=== PATIENT | male | born 1975 | race Caucasian/White ===

== ENCOUNTER → 2016-03-22 | Outpatient (CLI) | payer BC ==
--- NOTE | 2016-03-22 17:07 | XR ---
EXAMINATION TYPE: XR chest 2V DATE OF EXAM: 03/22/2016 4:12 PM COMPARISON: NONE INDICATION: Bladder tumor TECHNIQUE: Frontal and lateral views of the chest are obtained. FINDINGS: The heart size is normal. The pulmonary vasculature is normal. The lungs are clear. IMPRESSION: 1. No acute pulmonary process.
--- NOTE | 2016-03-22 17:08 | XR ---
EXAMINATION TYPE: XR KUB DATE OF EXAM: 03/22/2016 4:13 PM COMPARISON: NONE INDICATION: TECHNIQUE: Single view abdomen FINDINGS: There is a nonspecific bowel gas pattern within small bowel loops as well as colon. Psoas margins are normal. No organomegaly is present. No mass effect is evident. IMPRESSION: 1. Unremarkable Abdomen
== END | disposition home or self-care (01) ==
LOC: RADXRMAIN 15:53
PROVIDERS: ATTEND Family Medicine
DX: K21.9 Gastro-esophageal reflux disease without esophagitis (principal); R07.9 Chest pain, unspecified
CPT/HCPCS: 71020; 74000

== ENCOUNTER → 2016-04-05 | Outpatient (CLI) | payer BC ==
--- NOTE | 2016-04-05 17:09 | NM ---
EXAMINATION TYPE: NM bone scan whole body DATE OF EXAM: 04/05/2016 2:44 PM COMPARISON: NONE HISTORY: Low back pain Delayed whole-body scanning was performed following the injection of 25.0 mCi Tc 99m MDP. Images wer e acquired 3 hours post injection. SPECT imaging is performed through the lumbar spine FINDINGS: There is mild uptake within scattered joint spaces shoulders elbows wrists joint space is within the knees and ankles. Right first metatarsophalangeal joint space is increased uptake. Suspicious uptake within the lumbar spine is not identified. No suspicious uptake is evident on SPECT imaging. IMPRESSION: 1. Degenerative joint changes. No acute changes the lumbar spine are evident.
--- NOTE | 2016-04-05 17:39 | NM ---
EXAMINATION TYPE: NM bone SPECT DATE OF EXAM: 04/05/2016 2:41 PM SPECT imaging is performed in conjunction with the whole body bone scan. Please see whole-body bone s can report of same date.
== END | disposition home or self-care (01) ==
LOC: RADNMMAIN 10:10
PROVIDERS: ATTEND Orthopaedic Surgery Orthopaedic Surgery of the Spine
DX: M47.816 Spondylosis without myelopathy or radiculopathy, lumbar region (principal)
CPT/HCPCS: 78306; 78320; A9503

== ENCOUNTER 2016-07-08 12:22 | Emergency (ER) | payer BC ==
[2016-07-08] MEDS ORDERED: ALPRAZolam 0.5 MG TAB PO STA (15:50)
--- NOTE | 2016-07-08 16:06 | ED ---
General Adult HPI - General Chief complaint: Upper Respiratory Infection Stated complaint: Hand/Facial Numbness Time Seen by Provider: 07/08/16 15:33 Source: patient, RN notes reviewed Mode of arrival: ambulatory Limitations: no limitations - History of Present Illness Initial comments: Patient a 40-year-old male who presents emergency room today with multiple complaints. He does admit to cough congestion over the last 4 days. Denies any sputum production. Admits that he's had a history of anxiety is had symptoms of numbness tingling to the left arm and left side of his face. He states he's had this in the past. He states has been well controlled with his medications that he's been taking at home. He states that he had increased symptoms even after taking his medications. Does admit that he's had some headache to the left side as well. Does admit to increased rhinorrhea and a sore throat. Patient states that some of the symptoms are consistent with his anxiety but the headache is different than what is experienced in the past. Patient denies any other complaints or symptoms. Patient denies any recent fever , chills, shortness of breath, chest pain, back pain, abdominal pain, nausea or vomiting, numbness or tingling, dysuria or hematuria, constipation or diarrhea, headaches or visual changes, or any other complaints. - Related Data Home Medications Medication Instructions Recorded Confirmed ALPRAZolam [Xanax] 0.5 mg PO DAILY PRN 07/08/16 07/08/16 Clobetasol Propionate [Temovate] 1 applic TOPICAL BID 07/08/16 07/08/16 Ibuprofen [Motrin] 800 mg PO Q8H PRN 07/08/16 07/08/16 Sertraline [Zoloft] 50 mg PO BID 07/08/16 07/08/16 Tolterodine Tartrate [Detrol LA] 4 mg PO DAILY 07/08/16 07/08/16 Previous Rx's Medication Instructions Recorded Fluticasone Propionate [Flonase 1 - 2 spray EA NOSTRIL DAILY 5 Days 07/08/16 Allergy Relief] Allergies Allergy/AdvReac Type Severity Reaction Status Date / Time meperidine [From Demerol] Allergy Anaphylaxis Verified 07/08/16 16:02 Review of Systems ROS Statement: Those systems with pertinent positive or pertinent negative responses have been documented in the HPI. ROS Other: All systems not noted in ROS Statement are negative. Past Medical History Past Medical History: Cancer History of Any Multi-Drug Resistant Organisms: None Reported Additional Past Surgical History / Comment(s): bladder surgery Past Psychological History: Anxiety Smoking Status: Current every day smoker Past Alcohol Use History: None Reported Past Drug Use History: Marijuana General Exam - General Exam Comments Initial Comments: General: The patient is awake and alert, in no distress, and does not appear acutely ill. Eye: Pupils are equal, round and reactive to light, extra-ocular movements are intact. No nystagmus. There is normal conjunctiva bilaterally. No signs of icterus. Ears, nose, mouth and throat: There are moist mucous membranes and no oral lesions. Neck: The neck is supple, there is no tenderness or JVD. Cardiovascular: There is a regular rate and rhythm. No murmur, rub or gallop is appreciated. Respiratory: Lungs are clear to auscultation, respirations are non-labored, breath sounds are equal. No wheezes, stridor, rales, or rhonchi. Gastrointestinal: Soft, non-distended, non-tender abdomen without masses or organomegaly noted. There is no rebound or guarding present. No CVA tenderness. Bowel sounds are unremarkable. Musculoskeletal: Normal ROM, no tenderness. Strength 5/5. Sensation intact. Pulses equal bilaterally 2+. Neurological: A&O x 3. CN II-XII intact, There are no obvious motor or sensory deficits. Coordination appears grossly intact. Speech is normal. Skin: Skin is warm and dry and no rashes or lesions are noted. Psychiatric: Cooperative, appropriate mood & affect, normal judgment. Limitations: no limitations Course Vital Signs 07/08/16 12:28 Temperature 98.1 F Pulse Rate 95 Respiratory 18 Rate Blood Pressure 139/89 O2 Sat by Pulse 96 Oximetry Medical Decision Making - Medical Decision Making Patient reexamined at this time shows no signs of distress. Patient was given half a Xanax as is worried he takes at home. She admits that numbness tingling has gone away. He does admit that he has headache. CT of the brain reviewed does show some mucosal thickening of the ethmoid. No other acute abnormalities. Patient's chest x-ray negative. Patient will be given Flonase for his symptoms of rhinorrhea and sinus tenderness. He is advised follow-up with his family doctor over the next 2 days. He is advised return for any other concerns. Disposition Clinical Impression: Acute sinusitis Disposition: HOME SELF-CARE Condition: Good Instructions: Sinusitis (ED) Additional Instructions: Please use medication as discussed. Please follow-up with family doctor in the next 2 days of symptoms have not improved. Please return to emergency room if the symptoms increase or worsen or for any other concerns. Prescriptions: Fluticasone Propionate [Flonase Allergy Relief] 1 - 2 spray EA NOSTRIL DAILY 5 Days Time of Disposition: 17:15
--- NOTE | 2016-07-08 16:48 | XR ---
EXAMINATION TYPE: XR chest 2V DATE OF EXAM: 07/08/2016 4:43 PM COMPARISON: 03/22/2016 INDICATION: Cough x4 days TECHNIQUE: Single frontal view of the chest is obtained. FINDINGS: The heart size is normal. The pulmonary vasculature is normal. The lungs are clear. IMPRESSION: 1. No acute pulmonary process.
--- NOTE | 2016-07-08 16:50 | CT ---
EXAMINATION TYPE: CT brain cspine wo con DATE OF EXAM: 07/08/2016 4:44 PM COMPARISON: NONE HISTORY: History of bladder cancer. Headache and left sided numbness. CT DLP: 1782.00 mGycm, Automated exposure control for dose reduction was used. CONTRAST: None CT of the brain is performed utilizing 3 mm thick sections through the posterior fossa and 3 mm thick sections through the remaining calvarium. Study is performed within 24 hours of arrival to the hospital. No abnormal hyperdensity is present to suggest an acute intracranial hemorrhage. No mass lesion is evident. No acute infarcts are evident. Ventricles and sulci are appropriate for the patient age. There is mucosal thickening within ethmoid air cells. There may been prior uncinectomy. Remaining Paranasal sinuses and mastoid air cells within the [id number] are clear. IMPRESSIONS: 1. Normal CT brain. 2. Mucosal thickening within ethmoid air cells. CT cervical spine. COMPARISON: None CT of the cervical spine is performed in the axial plane at 2 mm thick sections. Reconstructed image s in the coronal, and sagittal plane are reviewed on the computer. No acute fractures are evident. Vertebral body alignment is normal. Disc heights are preserved. Vertebral body heights are preserved. No spinal canal stenosis is evident. No neural foraminal stenosis is evident. No suspicious osseous abnormality. IMPRESSIONS: 1. Normal CT cervical spine.
[2016-07-08 17:37] VITALS: BP 121/70; PULSE 87; RESP 20; TEMP 98
== END 2016-07-08 17:37 | disposition home or self-care (01) ==
LOC: EC 12:22
DX: J01.90 Acute sinusitis, unspecified (principal); R05 Cough; F41.9 Anxiety disorder, unspecified; F17.200 Nicotine dependence, unspecified, uncomplicated; Z85.9 Personal history of malignant neoplasm, unspecified; Z88.5 Allergy status to narcotic agent; Z79.899 Other long term (current) drug therapy
CPT/HCPCS: 70450; 71020; 72125; 93005; 99284

== ENCOUNTER → 2016-07-28 | Outpatient (CLI) | payer BC ==
[2016-07-28 13:23] LABS: Creatine Kinase 145 U/L (55-170)
[2016-07-28 13:28] LABS: Rheumatoid Factor, Qnt <9 IU/mL (<12)
[2016-07-28 19:26] LABS: Treponemal Ab Non-Reactive (Non-Reactive)
[2016-07-28 20:07] LABS: ANA w/Reflex to Titer NEGATIVE (NEGATIVE)
[2016-07-29 06:54] LABS: Lyme Antibodies Total(IgG/IgM) 0.05 (<0.90)
== END | disposition home or self-care (01) ==
LOC: LABWHC1 12:21
PROVIDERS: ATTEND Psychiatry & Neurology Neurology
DX: M60.9 Myositis, unspecified (principal); M79.1 Myalgia; M25.50 Pain in unspecified joint
CPT/HCPCS: 36415; 82550; 85652; 86038; 86225; 86235; 86431; 86618; 86780

== ENCOUNTER 2017-01-26 18:26 | Emergency (ER) | payer BC ==
[2017-01-26 19:18] LABS: Basophils % (A) 1 %; CH 30.6; CHCM 34.6; Eosinophils # (A) 0.4 k/uL (0-0.7); Eosinophils % (A) 5 %; HCT 45.2 % (39.0-53.0); HGB 15.1 gm/dL (13.0-17.5); Luc # (Auto) 0.15; Luc % (Auto) 2; Lymphocytes # (A) 1.7 k/uL (1.0-4.8); Lymphocytes % (A) 25 %; MCH 29.6 pg (25.0-35.0); MCHC 33.4 g/dL (31.0-37.0); MCV 88.7 fL (80.0-100.0); Mean Platelet Volume 6.8; Monocytes # (A) 0.4 k/uL (0-1.0); Monocytes % (A) 6 %; Neutrophils # (A) 4.3 k/uL (1.3-7.7); Neutrophils % (A) 61 %; RBC 5.09 m/uL (4.30-5.90); RDW 12.9 % (11.5-15.5); WBC (Perox) 6.84
--- NOTE | 2017-01-26 19:20 | ED ---
General Adult HPI - General Chief complaint: Chest Pain Stated complaint: chest tightness Time Seen by Provider: 01/26/17 18:44 Source: patient, RN notes reviewed, old records reviewed Mode of arrival: ambulatory Limitations: no limitations - History of Present Illness Initial comments: This is a 41-year-old male the ER for evaluation. Patient does reevaluation of chest pain muscle pain body aches. Patient was at the ER for evaluation by urgent care. He is chest pain-free but he does admit not available the last few days. Pain is left sided chest pain. Patient denies fevers no abdominal pain. No nausea vomiting. No travel history - Related Data Home Medications Medication Instructions Recorded Confirmed Diazepam [Valium] 5 mg PO TID PRN 01/26/17 01/26/17 HYDROcodone/APAP 5-325MG [[place] 1 tab PO BID PRN 01/26/17 01/26/17 5-325] Ibuprofen [Motrin] 800 mg PO Q8H PRN 01/26/17 01/26/17 Sertraline [Zoloft] 100 mg PO BID 01/26/17 01/26/17 Previous Rx's Medication Instructions Recorded HYDROcodone/APAP 5-325MG [[place] 1 tab PO Q6HR PRN #30 tab 01/26/17 5-325] Naproxen [Naprosyn] 500 mg PO Q12HR #30 tab 01/26/17 Allergies Allergy/AdvReac Type Severity Reaction Status Date / Time meperidine [From Demerol] Allergy Anaphylaxis Verified 01/26/17 19:18 Review of Systems ROS Statement: Those systems with pertinent positive or pertinent negative responses have been documented in the HPI. ROS Other: All systems not noted in ROS Statement are negative. Past Medical History Past Medical History: Cancer History of Any Multi-Drug Resistant Organisms: None Reported Additional Past Surgical History / Comment(s): bladder surgery Past Psychological History: Anxiety Smoking Status: Current every day smoker Past Alcohol Use History: None Reported Past Drug Use History: Marijuana General Exam Limitations: no limitations General appearance: alert, in no apparent distress Head exam: Present: atraumatic, normocephalic, normal inspection Eye exam: Present: normal appearance, PERRL, EOMI. Absent: scleral icterus, conjunctival injection, periorbital swelling ENT exam: Present: normal exam, mucous membranes moist Neck exam: Present: normal inspection. Absent: tenderness, meningismus, lymphadenopathy Respiratory exam: Present: normal lung sounds bilaterally. Absent: respiratory distress, wheezes, rales, rhonchi, stridor Cardiovascular Exam: Present: regular rate, normal rhythm, normal heart sounds. Absent: systolic murmur, diastolic murmur, rubs, gallop, clicks GI/Abdominal exam: Present: soft, normal bowel sounds. Absent: distended, tenderness, guarding, rebound, rigid Extremities exam: Present: normal inspection, full ROM, normal capillary refill. Absent: tenderness, pedal edema, joint swelling, calf tenderness Back exam: Present: normal inspection Neurological exam: Present: alert, oriented X3, CN II-XII intact Psychiatric exam: Present: normal affect, normal mood Skin exam: Present: warm, dry, intact, normal color. Absent: rash Course Vital Signs 01/26/17 01/26/17 01/26/17 18:40 20:16 21:50 Temperature 97.8 F 98.2 F Pulse Rate 77 71 70 Respiratory 20 20 18 Rate Blood Pressure 116/80 118/56 110/56 O2 Sat by Pulse 99 99 99 Oximetry EKG Findings - EKG Comments: EKG Findings:: EKG shows normal sinus over 75, AK 144, QRS 74, QTc 410 Medical Decision Making - Medical Decision Making 41 male to the ER with chest pain. Chest pain and abnormal muscle aches and pains. Patient symptoms are improved, states he would like to be discharged home - Lab Data Result diagrams: 01/26/17 19:00 01/26/17 19:00 Lab Results 01/26/17 01/26/17 01/26/17 Range/Units 19:00 19:00 19:00 WBC 7.0 (3.8-10.6) k/uL RBC 5.09 (4.30-5.90) m/uL Hgb 15.1 (13.0-17.5) gm/dL Hct 45.2 (39.0-53.0) % MCV 88.7 (80.0-100.0) fL MCH 29.6 (25.0-35.0) pg MCHC 33.4 (31.0-37.0) g/dL RDW 12.9 (11.5-15.5) % Plt Count 224 (150-450) k/uL Neutrophils % 61 % Lymphocytes % 25 % Monocytes % 6 % Eosinophils % 5 % Basophils % 1 % Neutrophils # 4.3 (1.3-7.7) k/uL Lymphocytes # 1.7 (1.0-4.8) k/uL Monocytes # 0.4 (0-1.0) k/uL Eosinophils # 0.4 (0-0.7) k/uL Basophils # 0.0 (0-0.2) k/uL PT (9.0-12.0) sec INR (<1.2) APTT (22.0-30.0) sec D-Dimer (<0.60) mg/L FEU Sodium 141 (137-145) mmol/L Potassium 4.5 (3.5-5.1) mmol/L Chloride 109 H (98-107) mmol/L Carbon Dioxide 23 (22-30) mmol/L Anion Gap 9 mmol/L BUN 18 (9-20) mg/dL Creatinine 0.88 (0.66-1.25) mg/dL Est GFR (MDRD) Af Amer >60 (>60 ml/min/1.73 sqM) Est GFR (MDRD) Non-Af >60 (>60 ml/min/1.73 sqM) Glucose 94 (74-99) mg/dL Calcium 9.5 (8.4-10.2) mg/dL Magnesium 2.0 (1.6-2.3) mg/dL Total Bilirubin 0.4 (0.2-1.3) mg/dL AST 35 (17-59) U/L ALT 68 (21-72) U/L Alkaline Phosphatase 93 (38-126) U/L Total Creatine Kinase 185 H (55-170) U/L CK-MB (CK-2) 1.4 (0.0-2.4) ng/mL CK-MB (CK-2) Rel Index 0.8 Troponin I <0.012 (0.000-0.034) ng/mL Total Protein 7.9 (6.3-8.2) g/dL Albumin 4.5 (3.5-5.0) g/dL Lipase 76 (23-300) U/L Urine Color Urine Appearance (Clear) Urine pH (5.0-8.0) Ur Specific [place] (1.001-1.035) Urine Protein (Negative) Urine Glucose (UA) (Negative) Urine Ketones (Negative) Urine Blood (Negative) Urine Nitrite (Negative) Urine Bilirubin (Negative) Urine Urobilinogen (<2.0) mg/dL Ur Leukocyte Esterase (Negative) 01/26/17 01/26/17 Range/Units 19:00 21:40 WBC (3.8-10.6) k/uL RBC (4.30-5.90) m/uL Hgb (13.0-17.5) gm/dL Hct (39.0-53.0) % MCV (80.0-100.0) fL MCH (25.0-35.0) pg MCHC (31.0-37.0) g/dL RDW (11.5-15.5) % Plt Count (150-450) k/uL Neutrophils % % Lymphocytes % % Monocytes % % Eosinophils % % Basophils % % Neutrophils # (1.3-7.7) k/uL Lymphocytes # (1.0-4.8) k/uL Monocytes # (0-1.0) k/uL Eosinophils # (0-0.7) k/uL Basophils # (0-0.2) k/uL PT 12.0 (9.0-12.0) sec INR 1.2 H (<1.2) APTT 26.3 (22.0-30.0) sec D-Dimer 0.65 H (<0.60) mg/L FEU Sodium (137-145) mmol/L Potassium (3.5-5.1) mmol/L Chloride (98-107) mmol/L Carbon Dioxide (22-30) mmol/L Anion Gap mmol/L BUN (9-20) mg/dL Creatinine (0.66-1.25) mg/dL Est GFR (MDRD) Af Amer (>60 ml/min/1.73 sqM) Est GFR (MDRD) Non-Af (>60 ml/min/1.73 sqM) Glucose (74-99) mg/dL Calcium (8.4-10.2) mg/dL Magnesium (1.6-2.3) mg/dL Total Bilirubin (0.2-1.3) mg/dL AST (17-59) U/L ALT (21-72) U/L Alkaline Phosphatase (38-126) U/L Total Creatine Kinase (55-170) U/L CK-MB (CK-2) (0.0-2.4) ng/mL CK-MB (CK-2) Rel Index Troponin I (0.000-0.034) ng/mL Total Protein (6.3-8.2) g/dL Albumin (3.5-5.0) g/dL Lipase (23-300) U/L Urine Color Light Yellow Urine Appearance Clear (Clear) Urine pH 6.5 (5.0-8.0) Ur Specific [place] 1.028 (1.001-1.035) Urine Protein Negative (Negative) Urine Glucose (UA) Negative (Negative) Urine Ketones Negative (Negative) Urine Blood Negative (Negative) Urine Nitrite Negative (Negative) Urine Bilirubin Negative (Negative) Urine Urobilinogen <2.0 (<2.0) mg/dL Ur Leukocyte Esterase Negative (Negative) - Radiology Data Radiology results: report reviewed (Chest x-rays negative for acute disease), image reviewed Disposition Clinical Impression: Chest pain Disposition: HOME SELF-CARE Condition: Good Instructions: Chest Pain (ED), Viral Syndrome (ED) Prescriptions: HYDROcodone/APAP 5-325MG [[place] 5-325] 1 tab PO Q6HR PRN #30 tab PRN Reason: Pain Naproxen [Naprosyn] 500 mg PO Q12HR #30 tab Referrals: Luisito Mast MD [Primary Care Provider] - 1-2 days
[2017-01-26 19:26] LABS: ALT 68 U/L (21-72); AST 35 U/L (17-59); Alkaline Phosphatase 93 U/L (38-126); Anion Gap 9 mmol/L; Blood Urea Nitrogen 18 mg/dL (9-20); Calcium 9.5 mg/dL (8.4-10.2); Carbon Dioxide 23 mmol/L (22-30); Chloride 109 mmol/L (98-107); Glucose 94 mg/dL (74-99); Non-African American GFR(MDRD) >60 (>60 ml/min/1.73 sqM); Potassium 4.5 mmol/L (3.5-5.1); Sodium 141 mmol/L (137-145); Total Bilirubin 0.4 mg/dL (0.2-1.3); Total Protein 7.9 g/dL (6.3-8.2)
[2017-01-26 19:30] LABS: INR 1.2 (<1.2); Partial Thromboplastin Time 26.3 sec (22.0-30.0)
--- NOTE | 2017-01-26 19:31 | XR ---
EXAMINATION TYPE: XR chest 2V DATE OF EXAM: 01/26/2017 COMPARISON: 07/08/2016 HISTORY: Chest pain TECHNIQUE: Frontal and lateral views of the chest are obtained. FINDINGS: Heart and mediastinum are normal. Lungs are clear. Diaphragm is normal. Bony thorax is int act. There are chest leads. IMPRESSION: Normal chest. No change.
[2017-01-26] MEDS ORDERED: RX INFO: IV CONTRAST WAS GIVEN 1 EACH MISC MISCELLANE PRN (19:53)
[2017-01-26] MEDS ORDERED: ONDANSETRON 4 MG/2 ML VIAL IVP STA (19:53)
[2017-01-26] MEDS ORDERED: MORPHINE SULFATE 10 MG/ML SYRINGE IVP STA (19:53)
[2017-01-26 19:56] LABS: Creatine Kinase 185 U/L (55-170)
[2017-01-26 20:08] LABS: Creatine Kinase MB 1.4 ng/mL (0.0-2.4); Troponin I <0.012 ng/mL (0.000-0.034)
--- NOTE | 2017-01-26 20:48 | CT ---
EXAMINATION TYPE: CT angio chest DATE OF EXAM: 01/26/2017 8:34 PM COMPARISON: NONE HISTORY: Chest tightness and elevated d-dimer. CT DLP: 316.80 mGycm Automated exposure control for dose reduction was used. CONTRAST: CTA scan of the thorax is performed with IV Contrast, patient injected with 85 mL of Omnipaque 350, p ulmonary embolism protocol. There are 3-D post processed images.. FINDINGS: The lungs are clear of consolidation. There is no evidence of a pulmonary mass. There are tiny subple ural interstitial infiltrates in both lungs. There is no pleural effusion. Heart size is normal. Medi astinum is normal. There is no evidence of aortic aneurysm or dissection. There is normal appearance of the pulmonary arteries. I see no filling defects. There are small bronc hial lymph nodes that measure up to 1 cm. The bony thorax is intact. IMPRESSION: NEGATIVE CT ANGIOGRAM OF THE CHEST. NO EVIDENCE OF PULMONARY EMBOLISM. MINIMAL SUBPLEURAL DENSITY CON SISTENT WITH SCARRING OR SUBSEGMENTAL ATELECTASIS.
[2017-01-26 21:52] VITALS: BP 110/56; PULSE 70; RESP 18; TEMP 98.2
[2017-01-26 22:02] LABS: Appearance,Urine Clear (Clear); Bilirubin,Urine Negative (Negative); Glucose,Urine (UA) Negative (Negative); Ketones,Urine Negative (Negative); Leukocyte Esterase,Urine Negative (Negative); Nitrite,Urine Negative (Negative); PH, Urine 6.5 (5.0-8.0); Protein,Urine Negative (Negative); Specific Gravity,Urine 1.028 (1.001-1.035); UA Billing (MACRO vs. MICRO) CHEM; Urobilinogen,Urine <2.0 mg/dL (<2.0)
== END 2017-01-26 21:50 | disposition home or self-care (01) ==
LOC: EC 18:26
DX: R07.9 Chest pain, unspecified (principal); F41.9 Anxiety disorder, unspecified; F17.200 Nicotine dependence, unspecified, uncomplicated; Z85.9 Personal history of malignant neoplasm, unspecified; Z53.20 Procedure and treatment not carried out because of patient's decision for unspecified reasons; Z88.5 Allergy status to narcotic agent; Z79.899 Other long term (current) drug therapy
CPT/HCPCS: 36415; 93005; 85379; 80053; 82550; 82553; 83690; 83735; 84484; 85025; 85610; 85730; 81003; 71020; 71275; 99285; Q9967

== ENCOUNTER → 2017-07-17 | Outpatient (CLI) | payer BC ==
--- NOTE | 2017-07-17 11:03 | MR ---
EXAMINATION TYPE: MR brain wo/w con DATE OF EXAM: 07/17/2017 COMPARISON: NONE HISTORY: 41-year-old male Headache TECHNIQUE: Multiplanar, multisequence images of the brain and brainstem were acquired before and aft er administration of 7.5 mL IV Gadavist. Diffusion weighted imaging is performed. FINDINGS: No evidence for acute infarction, hemorrhage, mass, mass effect, midline shift, herniation, effacemen t of basal cisterns, or extra-axial fluid collection. The ventricles and sulci are age-appropriate. Major intracranial flow voids are intact. T2/FLAIR weighted sequences show no white matter signal abnormality. Midline structures demonstrate normal morphology. The craniocervical junction is normal. Post contrast images demonstrate no evidence of pathologic enhancement. Dural venous sinuses are pat ent. Opacification of the left-sided mastoid air cells. Mild mucosal thickening throughout the ethmoid air cells. Globes are intact. IMPRESSION: 1. No acute intracranial abnormality seen. No white matter signal changes or abnormal enhancement. 2. Trapped fluid in the left mastoid air cells. Correlate for any mastoid pain to exclude mastoiditis . 3. Mild chronic ethmoid sinus disease.
--- NOTE | 2017-07-17 12:49 | MR ---
EXAMINATION TYPE: MR cspine/lspine wo/w con DATE OF EXAM: 07/17/2017 COMPARISON: Lumbar spine 03/11/2016 HISTORY: 41-year-old male neck pain, Cervicalgia, LBP Technique: Multiplanar, multisequence images of the cervical followed by the lumbar spine were obtain ed before and after administration of 7.5 mL intravenous Gadavist gadolinium contrast. FINDINGS: CERVICAL SPINE: No craniocervical junction of the body, predental space widening, or prevertebral soft tissue swellin g. Variable mild disc desiccation mid to lower cervical spine. Bulging discs at c5-c6 and larger at c6-c 7. Mild facet degenerative change lower cervical spine. There is preserved alignment. No suspicious bone marrow replacement. At c2-c3, mild facet degenerative change without canal or foraminal stenosis. At c3-c4, mild facet degenerative change without canal or foraminal stenosis. At c4-c5, bilateral facet degenerative change with mild narrowing of the right neuroforamen. No spina l canal stenosis. At c5-c6, mild facet and uncovertebral joint degenerative change. There is mild narrowing of the righ t-sided neuroforamen. Minimal posterior disc bulge is present without significant spinal canal stenos is. At c6-c7, broad-based posterior disc bulge with superimposed central, right paracentral protrusion. T his impresses on the ventral thecal sac mildly narrowing the spinal canal to 1 cm. However, there is no abutment or flattening of the cord. Facet and uncovertebral joint degenerative change with mild le ft neuroforaminal stenosis. At c7-t1, mild facet degenerative change without significant canal or foraminal stenosis. No abnormal enhancement within the spinal canal. No prevertebral or paravertebral soft tissue abnormality seen. Normal course, caliber, and signal intensity of the cervical cord. LUMBAR SPINE: Vertebral body heights are preserved and alignment is maintained. Redemonstrated Modic type II fatty endplate change anteriorly at L2-L3. Mild heterogeneity of marrow signal without suspicious bone marrow replacement. There is a component of mild congenital spinal canal stenosis with AP canal dimension of 1.1 cm in th e mid lumbar spine. Conus medullaris is normal. No prevertebral or paravertebral soft tissue abnormality seen. Prominent anterior endplate spondylosis L1-L4 levels along with posterior bulging discs. Facet degene rative change mid to lower lumbar spine. At T12-L1, no canal or foraminal stenosis. At L1-L2, bulging disc minimally impressing onto the ventral thecal sac but without significant spina l canal stenosis. At L2-L3, bulging disc minimally impressing on the ventral thecal sac. No significant canal or forami nal stenosis. At L3-L4, combination of congenital canal narrowing and bulging disc mildly narrows the spinal canal. Facet degenerative changes also present with mild right greater than left neural foraminal stenosis, similar to prior exam. At L4-L5, mild facet degenerative change and mild bulging disc. Changes result in mild bilateral neur oforaminal stenosis similar to slightly progressed from prior. No significant spinal canal stenosis. At L5-S1, mild facet degenerative change. No significant spinal canal or neuroforaminal stenosis. No abnormal enhancement within the spinal canal. COMBINED IMPRESSION: CERVICAL SPINE: 1. Mild multilevel degenerative disc disease. There is a small disc herniation at C6-C7 impressing th e ventral thecal sac and mildly narrowing the spinal canal. However, there is no cord abutment or can al compromise. 2. Scattered mild facet and uncovertebral joint arthropathy. This causes mild neural foraminal narrow ing particularly on the right at C4-C5 and C5-C6 and on the left at C6-C7. LUMBAR SPINE: 1. [id number] degenerative disc disease particularly from L1 through L4 levels with mild disc d esiccation, mild disc interspace narrowing, and diffuse disc bulging. 2. There is a component of mild congenital spinal canal narrowing in the mid lumbar spine. Along with the bulging disc at L3-L4, there is overall mild spinal canal stenosis. No kimberli canal compromise at any level. 3. Similar mild right greater than left neuroforaminal stenosis at L3-L4. 4. Along with mild facet arthropathy in the lower lumbar spine, changes result in mild bilateral neur al foraminal narrowing at L4-L5, stable to minimally progressed from 2016.
== END ==
LOC: RADMRIMAIN 08:39
PROVIDERS: ATTEND Psychiatry & Neurology Pain Medicine
DX: M48.02 Spinal stenosis, cervical region (principal); M48.061 Spinal stenosis, lumbar region without neurogenic claudication; M99.71 Connective tissue and disc stenosis of intervertebral foramina of cervical region; M99.73 Connective tissue and disc stenosis of intervertebral foramina of lumbar region; M50.222 Other cervical disc displacement at C5-C6 level; M51.26 Other intervertebral disc displacement, lumbar region; M50.30 Other cervical disc degeneration, unspecified cervical region; M51.36 Other intervertebral disc degeneration, lumbar region; M46.92 Unspecified inflammatory spondylopathy, cervical region; M46.96 Unspecified inflammatory spondylopathy, lumbar region; Q76.49 Other congenital malformations of spine, not associated with scoliosis; R51 Headache; Z88.5 Allergy status to narcotic agent
CPT/HCPCS: 70553; 72156; 72158; A9581

== ENCOUNTER 2017-11-08 14:55 | Emergency (ER) | payer BC ==
[2017-11-08] MEDS ORDERED: KETOROLAC 30 MG/ML 1 ML VIAL IVP STA (15:12)
[2017-11-08] MEDS ORDERED: SODIUM CHLORIDE 0.9% 1,000 ML IV STA (15:12)
[2017-11-08] MEDS ORDERED: SODIUM CHLORIDE 0.9% 500 ML IV STA (15:12)
[2017-11-08] MEDS ORDERED: MORPHINE SULFATE 4 MG/ML SYRINGE IV STA (15:12)
--- NOTE | 2017-11-08 15:20 | ED ---
General Adult HPI - General Chief complaint: Urogenital Stated complaint: painful urination Time Seen by Provider: 11/08/17 15:00 Source: patient, RN notes reviewed, old records reviewed Mode of arrival: ambulatory Limitations: no limitations - History of Present Illness Initial comments: This is a 42-year-old male the ER for evaluation. Patient was essay for evaluation regards to severe scrotal pain, perineal pain. Patient states he can not walk, can barely walk secondary to severe pain that he is having below his scrotum. Patient has history of bladder cancer with tumor removal. Patient has difficulty with urination as well. No fevers. No abdominal pain. Pain appears to rest between his scrotum and his rectum - Related Data Home Medications Medication Instructions Recorded Confirmed Diazepam [Valium] 5 mg PO DAILY PRN 01/26/17 11/08/17 HYDROcodone/APAP 5-325MG [[place] 1 tab PO DAILY PRN 01/26/17 11/08/17 5-325] Ibuprofen [Motrin] 800 mg PO QAM 01/26/17 11/08/17 Sertraline [Zoloft] 100 mg PO BID 01/26/17 11/08/17 Allergies Allergy/AdvReac Type Severity Reaction Status Date / Time meperidine [From Demerol] Allergy Anaphylaxis Verified 11/08/17 15:58 Review of Systems ROS Statement: Those systems with pertinent positive or pertinent negative responses have been documented in the HPI. ROS Other: All systems not noted in ROS Statement are negative. Past Medical History Past Medical History: Cancer Additional Past Medical History / Comment(s): bladder cancer History of Any Multi-Drug Resistant Organisms: None Reported Additional Past Surgical History / Comment(s): bladder surgery Past Psychological History: Anxiety Smoking Status: Current every day smoker Past Alcohol Use History: None Reported Past Drug Use History: Marijuana General Exam Limitations: no limitations General appearance: alert, in no apparent distress Head exam: Present: atraumatic, normocephalic, normal inspection Eye exam: Present: normal appearance, PERRL, EOMI. Absent: scleral icterus, conjunctival injection, periorbital swelling ENT exam: Present: normal exam, mucous membranes moist Neck exam: Present: normal inspection. Absent: tenderness, meningismus, lymphadenopathy Respiratory exam: Present: normal lung sounds bilaterally. Absent: respiratory distress, wheezes, rales, rhonchi, stridor Cardiovascular Exam: Present: regular rate, normal rhythm, normal heart sounds. Absent: systolic murmur, diastolic murmur, rubs, gallop, clicks GI/Abdominal exam: Present: soft, normal bowel sounds. Absent: distended, tenderness, guarding, rebound, rigid exam: Present: other (Severe perineal pain and tenderness) Extremities exam: Present: normal inspection, full ROM, normal capillary refill. Absent: tenderness, pedal edema, joint swelling, calf tenderness Back exam: Present: normal inspection Neurological exam: Present: alert, oriented X3, CN II-XII intact Psychiatric exam: Present: normal affect, normal mood Skin exam: Present: warm, dry, intact, normal color. Absent: rash Course Vital Signs 11/08/17 14:56 Temperature 98.1 F Pulse Rate 94 Respiratory 20 Rate Blood Pressure 138/95 O2 Sat by Pulse 99 Oximetry Medical Decision Making - Lab Data Result diagrams: 11/08/17 15:20 11/08/17 15:20 Lab Results 11/08/17 11/08/17 11/08/17 Range/Units 15:01 15:20 15:20 WBC 7.6 (3.8-10.6) k/uL RBC 5.02 (4.30-5.90) m/uL Hgb 15.5 (13.0-17.5) gm/dL Hct 43.8 (39.0-53.0) % MCV 87.4 (80.0-100.0) fL MCH 31.0 (25.0-35.0) pg MCHC 35.5 (31.0-37.0) g/dL RDW 12.9 (11.5-15.5) % Plt Count 238 (150-450) k/uL Neutrophils % 64 % Lymphocytes % 23 % Monocytes % 6 % Eosinophils % 5 % Basophils % 0 % Neutrophils # 4.8 (1.3-7.7) k/uL Lymphocytes # 1.7 (1.0-4.8) k/uL Monocytes # 0.4 (0-1.0) k/uL Eosinophils # 0.4 (0-0.7) k/uL Basophils # 0.0 (0-0.2) k/uL Sodium 141 (137-145) mmol/L Potassium 4.3 (3.5-5.1) mmol/L Chloride 107 (98-107) mmol/L Carbon Dioxide 25 (22-30) mmol/L Anion Gap 9 mmol/L BUN 20 (9-20) mg/dL Creatinine 0.90 (0.66-1.25) mg/dL Est GFR (CKD-EPI)AfAm >90 (>60 ml/min/1.73 sqM) Est GFR (CKD-EPI)NonAf >90 (>60 ml/min/1.73 sqM) Glucose 109 H (74-99) mg/dL Plasma Lactic Acid Jimy (0.7-2.0) mmol/L Calcium 9.3 (8.4-10.2) mg/dL Total Bilirubin 0.5 (0.2-1.3) mg/dL AST 30 (17-59) U/L ALT 53 (21-72) U/L Alkaline Phosphatase 80 (38-126) U/L Total Protein 7.3 (6.3-8.2) g/dL Albumin 4.5 (3.5-5.0) g/dL Amylase 62 (30-110) U/L Lipase 109 (23-300) U/L Urine Color Light Yellow Urine Appearance Cloudy (Clear) Urine pH 6.5 (5.0-8.0) Ur Specific [place] 1.015 (1.001-1.035) Urine Protein Negative (Negative) Urine Glucose (UA) Negative (Negative) Urine Ketones Negative (Negative) Urine Blood Small H (Negative) Urine Nitrite Negative (Negative) Urine Bilirubin Negative (Negative) Urine Urobilinogen <2.0 (<2.0) mg/dL Ur Leukocyte Esterase Moderate H (Negative) Urine RBC 26 H (0-5) /hpf Urine WBC 6 H (0-5) /hpf Urine Bacteria Rare H (None) /hpf Urine Yeast (Budding) Few H (None) /hpf 11/08/17 Range/Units 15:20 WBC (3.8-10.6) k/uL RBC (4.30-5.90) m/uL Hgb (13.0-17.5) gm/dL Hct (39.0-53.0) % MCV (80.0-100.0) fL MCH (25.0-35.0) pg MCHC (31.0-37.0) g/dL RDW (11.5-15.5) % Plt Count (150-450) k/uL Neutrophils % % Lymphocytes % % Monocytes % % Eosinophils % % Basophils % % Neutrophils # (1.3-7.7) k/uL Lymphocytes # (1.0-4.8) k/uL Monocytes # (0-1.0) k/uL Eosinophils # (0-0.7) k/uL Basophils # (0-0.2) k/uL Sodium (137-145) mmol/L Potassium (3.5-5.1) mmol/L Chloride (98-107) mmol/L Carbon Dioxide (22-30) mmol/L Anion Gap mmol/L BUN (9-20) mg/dL Creatinine (0.66-1.25) mg/dL Est GFR (CKD-EPI)AfAm (>60 ml/min/1.73 sqM) Est GFR (CKD-EPI)NonAf (>60 ml/min/1.73 sqM) Glucose (74-99) mg/dL Plasma Lactic Acid Jimy 1.2 (0.7-2.0) mmol/L Calcium (8.4-10.2) mg/dL Total Bilirubin (0.2-1.3) mg/dL AST (17-59) U/L ALT (21-72) U/L Alkaline Phosphatase (38-126) U/L Total Protein (6.3-8.2) g/dL Albumin (3.5-5.0) g/dL Amylase (30-110) U/L Lipase (23-300) U/L Urine Color Urine Appearance (Clear) Urine pH (5.0-8.0) Ur Specific [place] (1.001-1.035) Urine Protein (Negative) Urine Glucose (UA) (Negative) Urine Ketones (Negative) Urine Blood (Negative) Urine Nitrite (Negative) Urine Bilirubin (Negative) Urine Urobilinogen (<2.0) mg/dL Ur Leukocyte Esterase (Negative) Urine RBC (0-5) /hpf Urine WBC (0-5) /hpf Urine Bacteria (None) /hpf Urine Yeast (Budding) (None) /hpf Disposition Clinical Impression: Prostate pain, UTI (urinary tract infection) Disposition: HOME SELF-CARE Condition: Good Instructions: Urinary Tract Infection in Men (ED) Is patient prescribed a controlled substance at d/c from ED?: No Referrals: Luisito Mast MD [Primary Care Provider] - 1-2 days
[2017-11-08 15:21] LABS: Appearance,Urine Cloudy (Clear); Bacteria,Urine Rare /hpf; Bilirubin,Urine Negative (Negative); Blood,Urine Small (Negative); Budding Yeast,Urine Few /hpf; Color,Urine Light Yellow; Glucose,Urine (UA) Negative (Negative); Ketones,Urine Negative (Negative); Leukocyte Esterase,Urine Moderate (Negative); Nitrite,Urine Negative (Negative); PH, Urine 6.5 (5.0-8.0); Protein,Urine Negative (Negative); RBC,Urine 26 /hpf (0-5); Specific Gravity,Urine 1.015 (1.001-1.035); Urobilinogen,Urine <2.0 mg/dL (<2.0); WBC,Urine 6 /hpf (0-5)
[2017-11-08 15:37] LABS: Basophils % (A) 0 %; Eosinophils # (A) 0.4 k/uL (0-0.7); Eosinophils % (A) 5 %; HCT 43.8 % (39.0-53.0); HGB 15.5 gm/dL (13.0-17.5); Lymphocytes # (A) 1.7 k/uL (1.0-4.8); Lymphocytes % (A) 23 %; MCHC 35.5 g/dL (31.0-37.0); MCV 87.4 fL (80.0-100.0); Mean Platelet Volume 6.6; Monocytes # (A) 0.4 k/uL (0-1.0); Monocytes % (A) 6 %; Neutrophils # (A) 4.8 k/uL (1.3-7.7); Neutrophils % (A) 64 %; Platelet Count 238 k/uL (150-450); RBC 5.02 m/uL (4.30-5.90); RDW 12.9 % (11.5-15.5); WBC 7.6 k/uL (3.8-10.6)
[2017-11-08 15:48] LABS: ALT 53 U/L (21-72); AST 30 U/L (17-59); Albumin 4.5 g/dL (3.5-5.0); Alkaline Phosphatase 80 U/L (38-126); Amylase 62 U/L (30-110); Anion Gap 9 mmol/L; Blood Urea Nitrogen 20 mg/dL (9-20); Calcium 9.3 mg/dL (8.4-10.2); Carbon Dioxide 25 mmol/L (22-30); Chloride 107 mmol/L (98-107); Glucose 109 mg/dL (74-99); Lipase 109 U/L (23-300); Potassium 4.3 mmol/L (3.5-5.1); Sodium 141 mmol/L (137-145); Total Bilirubin 0.5 mg/dL (0.2-1.3); Total Protein 7.3 g/dL (6.3-8.2)
--- NOTE | 2017-11-08 16:05 | CT ---
EXAMINATION TYPE: CT pelvis w con DATE OF EXAM: 11/08/2017 COMPARISON: None HISTORY: Painful urination and low pelvic pain. CT DLP: 803 mGycm Automated exposure control for dose reduction was used. CONTRAST: Performed with IV Contrast, patient injected with 100ml mL of Isovue M300. Contrast-enhanced CT of the pelvis was performed from the lower poles of the kidneys through the infe rior pubic rami. FINDINGS: No inflammatory process identified within the pelvis. Advise gastrointestinal structures are within n ormal limits. There is anterior urinary bladder wall thickening with focal calcification. Consider cystitis. Calcif ication is of uncertain etiology. Direct visualization may be of value. No evidence for abscess or abnormal collection. Osseous structures are intact. No evidence of free fl uid. IMPRESSION: There is anterior urinary bladder wall thickening with focal calcification. Consider cystitis. Calcif ication is of uncertain etiology.
--- NOTE | 2017-11-08 18:28 | US ---
EXAMINATION TYPE: US pelvic limited DATE OF EXAM: 11/08/2017 COMPARISON: NONE CLINICAL HISTORY: Pain. h/o low grade bladder ca, multiple bladder lesions removed previously, and mo st recently 1 month prior, painful urination FINDINGS: The urine within the urinary bladder is anechoic. No internal debris. Examination of the urinary bladder wall shows a single defects involving the anterior wall: a mildly- hyperechoic en face plaque-like lesion measuring 0.3 cm in its thickness thick and measuring 2.3 cm C C and 1.9 cm transverse. No other findings. IMPRESSION: Anterior wall plaque-like lesion.
[2017-11-08] MEDS ORDERED: cefTRIAXone IN SWFI 1,000 MG/10 ML SYRINGE IVP STA (18:39)
[2017-11-08] MEDS ORDERED: Acetaminophen-Codeine 300-30mg TAB PO STA (18:40)
[2017-11-08] MEDS ORDERED: ACET/COD 300 MG/30 MG STARTER PACK 6 TAB BTL PO STA (18:40)
[2017-11-08] MEDS ORDERED: CIPROFLOXACIN HCL 500 MG TAB PO STA (18:41)
[2017-11-08 18:56] VITALS: BP 133/83; PULSE 66; RESP 18; TEMP 97.9
== END 2017-11-08 18:59 | disposition home or self-care (01) ==
LOC: EC 14:55
DX: N39.0 Urinary tract infection, site not specified (principal); N42.89 Other specified disorders of prostate; F41.9 Anxiety disorder, unspecified; F17.200 Nicotine dependence, unspecified, uncomplicated; Z79.1 Long term (current) use of non-steroidal anti-inflammatories (NSAID); Z79.899 Other long term (current) drug therapy; Z88.5 Allergy status to narcotic agent; Z85.51 Personal history of malignant neoplasm of bladder; Z98.890 Other specified postprocedural states
CPT/HCPCS: 36415; 80053; 82150; 83605; 83690; 85025; 81001; 87086; 76857; 72193; 99284; 96374; 96375 ×2; 96361 ×3; J2270; J0696; J1885; Q9967

== ENCOUNTER 2019-03-16 09:10 | Emergency (ER) | payer BC, OTHER ==
[2019-03-16 09:21] VITALS: TEMP 97.8
[2019-03-16 09:55] LABS: Appearance,Urine Clear (Clear); Bilirubin,Urine Negative (Negative); Blood,Urine Negative (Negative); Color,Urine Yellow; Glucose,Urine (UA) Negative (Negative); Ketones,Urine Negative (Negative); Leukocyte Esterase,Urine Negative (Negative); Nitrite,Urine Negative (Negative); PH, Urine 5.5 (5.0-8.0); Protein,Urine Negative (Negative); Urobilinogen,Urine <2.0 mg/dL (<2.0)
--- NOTE | 2019-03-16 10:16 | ED ---
Male Urogenital HPI - General Chief complaint: Urogenital Stated complaint: kidney pain Time Seen by Provider: 03/16/19 09:36 Source: patient Mode of arrival: ambulatory Limitations: no limitations - History of Present Illness Initial comments: 43-year-old male history of bladder cancer and recurrent urinary tract infections after diagnosis of cancer presents emergency department today for chief complaint of bilateral low back pain. Patient states he has bilateral low back pain he denies any flank or CVA area area tenderness E denies any abdominal pain nausea vomiting. Patient states that he has not had dysuria urgency frequency. He states he has had on and off hematuria the past few months he states his appointment upcoming for procedure with his oncologist, on March 27. Patient states he "being the discomfort is low backpersisting constant increasing with any movement or twisting for the past 4 days he presented to the research into that this was nothing to do with his kidneys as he has had polynephritis in the past per patient denies fever or flulike symptoms. Upon arrival patient is afebrile nontoxic appearing no signs of acute distress. - Related Data Home Medications Medication Instructions Recorded Confirmed Diazepam [Valium] 5 mg PO DAILY PRN 01/26/17 01/25/18 HYDROcodone/APAP 5-325MG [[place] 1 - 2 tab PO DAILY PRN 01/26/17 01/25/18 5-325] Ibuprofen [Motrin] 800 mg PO QAM 01/26/17 01/25/18 Sertraline [Zoloft] 100 mg PO BID 01/26/17 01/25/18 Previous Rx's Medication Instructions Recorded Ranitidine HCl [Zantac] 150 mg PO BID #60 tab 01/25/18 Allergies Allergy/AdvReac Type Severity Reaction Status Date / Time meperidine [From Demerol] Allergy Anaphylaxis Verified 03/16/19 09:21 Review of Systems ROS Statement: Those systems with pertinent positive or pertinent negative responses have been documented in the HPI. ROS Other: All systems not noted in ROS Statement are negative. Past Medical History Past Medical History: Cancer, GERD/Reflux Additional Past Medical History / Comment(s): HAVING LOOSE STOOLS, HX OF bladder cancer, inner bladder chemo tx -august History of Any Multi-Drug Resistant Organisms: None Reported Past Surgical History: Tonsillectomy Additional Past Surgical History / Comment(s): bladder TUMORS REMOVED, 3 FIRST SX, 1 SECOND SX, SINUS SX, COLONOSCOPY Past Anesthesia/Blood Transfusion Reactions: No Reported Reaction Past Psychological History: Anxiety Smoking Status: Current every day smoker Past Alcohol Use History: Occasional Past Drug Use History: None Reported General Exam - General Exam Comments Initial Comments: General: The patient is awake and alert, in no distress, and does not appear acutely ill. Eye: +3 mm pupils are equal, round and reactive to light, extra-ocular movements are intact. No nystagmus. There is normal conjunctiva bilaterally. No signs of icterus. Ears, nose, mouth and throat: There are moist mucous membranes and no oral lesions. Neck: The neck is supple, there is no tenderness or JVD. Cardiovascular: There is a regular rate and rhythm. No murmur, rub or gallop is appreciated. Respiratory: Lungs are clear to auscultation, respirations are non-labored, breath sounds are equal. No wheezes, stridor, rales, or rhonchi. Gastrointestinal: Soft, non-distended, non-tender abdomen without masses or organomegaly noted. There is no rebound or guarding present. No CVA tenderness. Bowel sounds are unremarkable. Musculoskeletal: Normal inspection lumbar spine. There is no midline tenderness to patient of the lumbar spine no thoracic. Patient has paravertebral tenderness of the upper lumbar spine. Normal ROM, no tenderness. Strength 5/5 of the UE and LE b/l. Sensation intact. Radial pulses equal bilaterally 2+. Neurological: A&O x 3. CN II-XII intact grossly, There are no obvious motor or sensory deficits. Coordination appears grossly intact. Speech is normal. Skin: Skin is warm and dry and no rashes or lesions are noted. Psychiatric: Cooperative, appropriate mood & affect, normal judgment. Limitations: no limitations Course Vital Signs 03/16/19 03/16/19 09:18 11:22 Temperature 97.8 F Pulse Rate 100 76 Respiratory 18 16 Rate Blood Pressure 164/99 143/76 O2 Sat by Pulse 98 99 Oximetry Medical Decision Making - Medical Decision Making Well-appearing 43-year-old male presenting today for chief complaint of low back pain. at bedside states patient has significant history of "a bad bacK' and has had muscle strains in the past. Patient denies any midline tenderness to patient of the spine. Patient has no neurological deficits. Patient was concerned he had pyelonephritis. Patient has no CVA tenderness afebrile nontoxic in appearance. Urinalysis unremarkable. No white blood cells or RBCs. We discussed imaging studies at this time patient would like to wait and see if symptoms resolve, he states he has an upcoming appointment with his urologist. Patient did have incidental finding of increased transaminases as well as bilirubin. Patient states there is a spot on the liver that they're watching. Patient of abdominal pain on examination I recommend patient trending these labs with his oncologist as well as primary care provider temperature discussed at length discuss case at 10 provider and patient was discharged appearing well agreeable care plan. Discussed outpatient imaging studies of liver as recommendation. - Lab Data Result diagrams: 03/16/19 10:15 03/16/19 10:15 Lab Results 03/16/19 03/16/19 03/16/19 Range/Units 09:39 10:15 10:15 WBC 6.0 (3.8-10.6) k/uL RBC 5.37 (4.30-5.90) m/uL Hgb 16.2 (13.0-17.5) gm/dL Hct 47.5 (39.0-53.0) % MCV 88.5 (80.0-100.0) fL MCH 30.2 (25.0-35.0) pg MCHC 34.1 (31.0-37.0) g/dL RDW 13.1 (11.5-15.5) % Plt Count 212 (150-450) k/uL Neutrophils % 67 % Lymphocytes % 17 % Monocytes % 7 % Eosinophils % 5 % Basophils % 2 % Neutrophils # 4.0 (1.3-7.7) k/uL Lymphocytes # 1.0 (1.0-4.8) k/uL Monocytes # 0.4 (0-1.0) k/uL Eosinophils # 0.3 (0-0.7) k/uL Basophils # 0.1 (0-0.2) k/uL Sodium 138 (137-145) mmol/L Potassium 4.4 (3.5-5.1) mmol/L Chloride 104 (98-107) mmol/L Carbon Dioxide 22 (22-30) mmol/L Anion Gap 12 mmol/L BUN 17 (9-20) mg/dL Creatinine 1.00 (0.66-1.25) mg/dL Est GFR (CKD-EPI)AfAm >90 (>60 ml/min/1.73 sqM) Est GFR (CKD-EPI)NonAf >90 (>60 ml/min/1.73 sqM) Glucose 113 H (74-99) mg/dL Calcium 9.9 (8.4-10.2) mg/dL Total Bilirubin 0.5 (0.2-1.3) mg/dL AST 97 H (17-59) U/L ALT 300 H (4-49) U/L Alkaline Phosphatase 148 H (38-126) U/L Total Protein 7.7 (6.3-8.2) g/dL Albumin 4.7 (3.5-5.0) g/dL Urine Color Yellow Urine Appearance Clear (Clear) Urine pH 5.5 (5.0-8.0) Ur Specific [place] 1.020 (1.001-1.035) Urine Protein Negative (Negative) Urine Glucose (UA) Negative (Negative) Urine Ketones Negative (Negative) Urine Blood Negative (Negative) Urine Nitrite Negative (Negative) Urine Bilirubin Negative (Negative) Urine Urobilinogen <2.0 (<2.0) mg/dL Ur Leukocyte Esterase Negative (Negative) Disposition Clinical Impression: Low back pain, Elevated AST (SGOT), Elevated ALT measurement, Elevated bilirubin Disposition: HOME SELF-CARE Condition: Good Instructions (If sedation given, give patient instructions): Low Back Strain (ED) Additional Instructions: Please use medication as discussed. Please follow-up with family doctor in the next 2 days, go over labs and follow-up with oncologist. Please return to emergency room if the symptoms increase or worsen or for any other concerns. Is patient prescribed a controlled substance at d/c from ED?: No Referrals: None,Stated [Primary Care Provider] - 1-2 days Time of Disposition: 11:07
[2019-03-16] MEDS ORDERED: MORPHINE SULFATE 4 MG/ML SYRINGE IVP STA (10:17)
[2019-03-16] MEDS ORDERED: ALPRAZolam 0.5 MG TAB PO STA (10:17)
[2019-03-16 10:39] LABS: Basophils # (A) 0.1 k/uL (0-0.2); Basophils % (A) 2 %; Eosinophils # (A) 0.3 k/uL (0-0.7); Eosinophils % (A) 5 %; HCT 47.5 % (39.0-53.0); HGB 16.2 gm/dL (13.0-17.5); Lymphocytes % (A) 17 %; MCH 30.2 pg (25.0-35.0); MCHC 34.1 g/dL (31.0-37.0); MCV 88.5 fL (80.0-100.0); Mean Platelet Volume 7.3; Monocytes # (A) 0.4 k/uL (0-1.0); Monocytes % (A) 7 %; Neutrophils % (A) 67 %; Platelet Count 212 k/uL (150-450); RBC 5.37 m/uL (4.30-5.90); RDW 13.1 % (11.5-15.5)
[2019-03-16 10:43] LABS: ALT 300 U/L (4-49); AST 97 U/L (17-59); African American GFR (CKD) >90 (>60 ml/min/1.73 sqM); Albumin 4.7 g/dL (3.5-5.0); Alkaline Phosphatase 148 U/L (38-126); Anion Gap 12 mmol/L; Blood Urea Nitrogen 17 mg/dL (9-20); Calcium 9.9 mg/dL (8.4-10.2); Carbon Dioxide 22 mmol/L (22-30); Chloride 104 mmol/L (98-107); Glucose 113 mg/dL (74-99); Non-African American GFR(CKD) >90 (>60 ml/min/1.73 sqM); Potassium 4.4 mmol/L (3.5-5.1); Sodium 138 mmol/L (137-145); Total Bilirubin 0.5 mg/dL (0.2-1.3); Total Protein 7.7 g/dL (6.3-8.2)
[2019-03-16 11:24] VITALS: BP 143/76; PULSE 76; RESP 16
== END 2019-03-16 11:15 | disposition home or self-care (01) ==
LOC: EC 09:10
DX: M54.5 Low back pain (principal); R74.0 Nonspecific elevation of levels of transaminase and lactic acid dehydrogenase [LDH]; R79.89 Other specified abnormal findings of blood chemistry; F41.9 Anxiety disorder, unspecified; F17.200 Nicotine dependence, unspecified, uncomplicated; Z88.5 Allergy status to narcotic agent; Z79.1 Long term (current) use of non-steroidal anti-inflammatories (NSAID); Z79.899 Other long term (current) drug therapy; Z92.21 Personal history of antineoplastic chemotherapy; Z85.51 Personal history of malignant neoplasm of bladder; Z87.440 Personal history of urinary (tract) infections; Z98.890 Other specified postprocedural states
CPT/HCPCS: 36415; 80053; 85025; 81003; 99283; 96374; J2270

== ENCOUNTER → 2019-05-07 | Outpatient (CLI) | payer OTHER ==
--- NOTE | 2019-05-07 14:11 | US ---
EXAMINATION TYPE: US mass soft tissue chest/back DATE OF EXAM: 05/07/2019 COMPARISON: Correlation CT from 01/26/2017 CLINICAL HISTORY: 43-year-old male with R07.89 Sternal pain. Pt states pain and palpable lump near xy phoid process near sternum TECHNIQUE: Targeted ultrasound examination at the patient's palpable site near the xiphoid process. FINDINGS: Glue Clamp Operator notes:No abnormality visualized to account for pt's symptoms Maybe some bony prominence at the palpable site. No solid or cystic lesion is seen within the subcuta neous adipose tissues. IMPRESSION: There maybe some slight bony protuberance at the palpable site near the xiphoid process. No cystic or soft tissue lesion identified within the subcutaneous layer. The finding can be followed clinically. If any growth as noted, the area can be reimaged.
== END | disposition home or self-care (01) ==
LOC: RADUSWWP 11:54
PROVIDERS: ATTEND Pediatrics
DX: R07.89 Other chest pain (principal)

== ENCOUNTER 2019-05-22 14:47 | Observation (INO) | payer OTHER ==
[2019-05-22] MEDS ORDERED: ASPIRIN 81 MG PO STA (15:08)
[2019-05-22] MEDS ORDERED: NITROGLYCERIN SL TABS 0.4 MG TAB SUBLINGUAL STA (15:08)
[2019-05-22] MEDS ORDERED: KETOROLAC 30 MG/ML 1 ML VIAL IVP STA (15:09)
--- NOTE | 2019-05-22 15:17 | ED ---
Chest Pain HPI - General Chief Complaint: Chest Pain Stated Complaint: chest pain Time Seen by Provider: 05/22/19 14:53 Source: patient, RN notes reviewed Mode of arrival: ambulatory Limitations: no limitations - History of Present Illness Initial Comments: 43-year-old male presents emergency Department chief complaint of worsening chest pain. Patient states she's had some on-and-off symptoms last week but states the pain is pretty much constant this time. He does admit that it's exacerbated by exertion. Patient states even with certain movements cause worsening pain. Patient states that he has pain with deep inspiration mild shortness breath. Patient denies any fevers or chills. Patient recently started seen a PCP was placed on medications for hyperlipidemia. Patient states that his father had multiple stents placed, pacemaker. Patient denies abdominal pain including nausea, vomiting, diarrhea constipation. He has not taken anything today for discomfort. Patient states that an ultrasound of his abdomen because of his symptoms which she states he did not have any acute findings. Patient said some of neck pain but not worse at this time. - Related Data Home Medications Medication Instructions Recorded Confirmed Diazepam [Valium] 5 mg PO DAILY PRN 01/26/17 01/25/18 HYDROcodone/APAP 5-325MG [[place] 1 - 2 tab PO DAILY PRN 01/26/17 01/25/18 5-325] Ibuprofen [Motrin] 800 mg PO QAM 01/26/17 01/25/18 Sertraline [Zoloft] 100 mg PO BID 01/26/17 01/25/18 Previous Rx's Medication Instructions Recorded Ranitidine HCl [Zantac] 150 mg PO BID #60 tab 01/25/18 Allergies Allergy/AdvReac Type Severity Reaction Status Date / Time meperidine [From Demerol] Allergy Anaphylaxis Verified 05/22/19 14:51 Review of Systems ROS Statement: Those systems with pertinent positive or pertinent negative responses have been documented in the HPI. ROS Other: All systems not noted in ROS Statement are negative. EKG Findings - EKG Comments: EKG Findings:: EKG performed at 15:05 normal sinus rhythm rate of 87 TN 138 QRS 78 QT/QTC 350/4:30 - EKG Results: EKG: interpreted by ALLAN Past Medical History Past Medical History: Cancer, GERD/Reflux Additional Past Medical History / Comment(s): HAVING LOOSE STOOLS, HX OF bladder cancer, inner bladder chemo tx -august History of Any Multi-Drug Resistant Organisms: None Reported Past Surgical History: Tonsillectomy Additional Past Surgical History / Comment(s): bladder TUMORS REMOVED, 3 FIRST SX, 1 SECOND SX, SINUS SX, COLONOSCOPY, removed calcifications in bladder, Past Anesthesia/Blood Transfusion Reactions: No Reported Reaction Past Psychological History: Anxiety Smoking Status: Current every day smoker Past Alcohol Use History: Occasional Past Drug Use History: Marijuana General Exam Limitations: no limitations General appearance: alert, in no apparent distress Head exam: Present: atraumatic, normocephalic, normal inspection Eye exam: Present: normal appearance, PERRL, EOMI. Absent: scleral icterus, conjunctival injection, periorbital swelling ENT exam: Present: normal exam, mucous membranes moist Neck exam: Present: normal inspection. Absent: tenderness, meningismus, lymphadenopathy Respiratory exam: Present: normal lung sounds bilaterally, chest wall tenderness. Absent: respiratory distress, wheezes, rales, rhonchi, stridor Cardiovascular Exam: Present: regular rate, normal rhythm, normal heart sounds. Absent: systolic murmur, diastolic murmur, rubs, gallop, clicks GI/Abdominal exam: Present: soft, normal bowel sounds. Absent: distended, tenderness, guarding, rebound, rigid Course Vital Signs 05/22/19 05/22/19 14:48 14:59 Temperature 97.6 F Pulse Rate 100 Pulse Rate [ 99 Manager Installation ] Respiratory 18 Rate Blood Pressure 165/103 O2 Sat by Pulse 97 Oximetry Chest Pain [facility] 43-year-old male presented for chest pain. Patient workup does reveal evidence of transaminitis has no abdominal pain. He states has been going on for a while. There was some concern as he recently started on hyperlipidemia meds. Patient pain does worsen with exertion. Patient will be admitted for further evaluation. Echocardiogram will be ordered. Disposition Clinical Impression: Chest pain, Transaminitis Disposition: ADMITTED IP TO THIS [facility] Condition: Fair Referrals: Mega Martinez MD [Primary Care Provider] - 1-2 days
[2019-05-22 15:27] LABS: Basophils % (A) 1 %; Eosinophils # (A) 0.4 k/uL (0-0.7); Eosinophils % (A) 6 %; HCT 45.4 % (39.0-53.0); HGB 15.7 gm/dL (13.0-17.5); Lymphocytes # (A) 2.1 k/uL (1.0-4.8); Lymphocytes % (A) 27 %; MCH 30.2 pg (25.0-35.0); MCHC 34.5 g/dL (31.0-37.0); MCV 87.4 fL (80.0-100.0); Mean Platelet Volume 7.4; Monocytes # (A) 0.4 k/uL (0-1.0); Monocytes % (A) 5 %; Neutrophils # (A) 4.8 k/uL (1.3-7.7); Neutrophils % (A) 60 %; Platelet Count 224 k/uL (150-450); RBC 5.19 m/uL (4.30-5.90); RDW 12.8 % (11.5-15.5)
--- NOTE | 2019-05-22 15:30 | XR ---
EXAMINATION TYPE: XR chest 2V DATE OF EXAM: 05/22/2019 COMPARISON: 01/26/2017 HISTORY: Chest pain for 2 days TECHNIQUE: Frontal and lateral views of the chest are obtained. FINDINGS: There is no focal air space opacity, pleural effusion, or pneumothorax seen. The cardiac silhouette size is within normal limits. The osseous structures are intact. Mild multilevel degener ative change of the spine. IMPRESSION: No acute cardiopulmonary process.
[2019-05-22 15:35] LABS: ALT 153 U/L (4-49); AST 67 U/L (17-59); African American GFR (CKD) >90 (>60 ml/min/1.73 sqM); Albumin 4.6 g/dL (3.5-5.0); Alkaline Phosphatase 200 U/L (38-126); Anion Gap 10 mmol/L; Blood Urea Nitrogen 17 mg/dL (9-20); Calcium 9.3 mg/dL (8.4-10.2); Carbon Dioxide 21 mmol/L (22-30); Chloride 106 mmol/L (98-107); Glucose 147 mg/dL (74-99); Non-African American GFR(CKD) >90 (>60 ml/min/1.73 sqM); Potassium 4.1 mmol/L (3.5-5.1); Sodium 137 mmol/L (137-145); Total Bilirubin 0.3 mg/dL (0.2-1.3); Total Protein 7.6 g/dL (6.3-8.2)
[2019-05-22 15:43] LABS: D-Dimer 0.56 mg/L FEU (<0.60); INR 0.9 (<1.2); Partial Thromboplastin Time 22.5 sec (22.0-30.0); Prothrombin Time 9.5 sec (9.0-12.0)
[2019-05-22] MEDS ORDERED: HEPARIN SODIUM,PORCINE 5,000 UNIT/ML 1 ML VIAL IV PRN (16:18)
[2019-05-22] MEDS ORDERED: HEPARIN SODIUM,PORCINE 5,000 UNIT/ML 1 ML VIAL IV ONE (16:18)
[2019-05-22] MEDS ORDERED: NITROGLYCERIN SL TABS 0.4 MG TAB SUBLINGUAL PRN (16:18)
[2019-05-22] MEDS ORDERED: HEPARIN SOD,PORK IN 0.45% NACL 25,000 UNIT in 0.45% NACL 1 250ML.BAG IV SCH (16:30)
--- NOTE | 2019-05-22 16:44 | US ---
EXAMINATION TYPE: US abdomen limited DATE OF EXAM: 05/22/2019 COMPARISON: NONE CLINICAL HISTORY: elevated LFTs. EXAM MEASUREMENTS: Liver Length: 20.5 cm Gallbladder Wall: 0.2 cm CBD: 0.3 cm Right Kidney: 12.6 x 4.7 x 5.7 cm No gallstones. Pancreas: Obscured by bowel gas Liver: Enlarged, attenuating, coarse echotexture Gallbladder: wnl Evidence for sonographic Lares's sign: No CBD: wnl Right Kidney: No hydronephrosis or masses seen IMPRESSION: Liver is echogenic that could relate to fatty infiltration. No dilated ducts.
[2019-05-22] MEDS: NICOTINE 21MG/24HR PATCH TRANSDERM SCH (19:15)
[2019-05-22] MEDS: SERTRALINE 100 MG TAB PO SCH (20:00)
[2019-05-22] MEDS ORDERED: KETOROLAC 30 MG/ML 1 ML VIAL IVP PRN (21:00)
[2019-05-22 21:27] VITALS: RESP 18
--- NOTE | 2019-05-22 21:49 | P.HPIM ---
History of Present Illness H&P Date: 05/22/19 Chief Complaint: Chest pain History of presenting complaint: This is a very pleasant 42-year-old patient of Dr. Martinez. Chronic stable Medical conditions include GERD, hyperlipidemia, osteoarthritis. Patient presents with central chest pain of one-day duration. Initially started off below the sternal floor and and then localized to the right side. Reproducible tender. Worse with body movements. The tenderness itself did not radiate to the arm or neck. No shortness of breath. No dizziness no lightheadedness. No prior cardiac history. Review of systems: GEN.: None EYES: None HEENT: None NECK: None RESPIRATORY: None CARDIOVASCULAR: None GASTROINTESTINAL: None GENITOURINARY: None MUSCULOSKELETAL: [As above LYMPHATICS: None HEMATOLOGICAL: None PSYCHIATRY: None NEUROLOGICAL: None Past medical history to include: GERD, hyperlipidemia, osteoarthritis, history of bladder cancer treated with chemo Social history: Smokes a pack close to a pack a day for about 28 years. Drinks marijuana occasionally. Currently not employed. 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 Lives with his fiance Physical examination: VITAL SIGNS: 97.6 pulse 100 respiration 18 blood pressure 126/83 pulse ox 98% on room air GENERAL: [BMI 32.3, sitting up in bed, in comfortable. EYES: Pupils equal. Conjunctiva normal. HEENT: External appearance of nose and ears normal, oral cavity grossly normal. NECK: JVD not raised; masses not palpable. HEART: First and second heart sounds are normal; no edema. LUNGS: Respiratory rate normal; clear to auscultation. MUSCULOSKELETAL: Reproducible pain with localized tenderness at the right costochondral junctions ABDOMEN: Soft, nontender, liver spleen not palpable, no masses palpable. PSYCH: Alert and oriented x3; mood and affect normal. NEUROLOGICAL: Cranial nerves grossly intact; no facial asymmetry, power and sensation grossly intact. LYMPHATICS: No lymph nodes palpable in the axilla and neck INVESTIGATIONS, reviewed in the clinical context: White count 8 hemoglobin 15.7 potassium 4.1 creatinine 0.73 AST 67 ALT 153 troponin I less than 0.012 EKG tracing personally reviewed by me-normal sinus rhythm Chest x-ray film personally reviewed by me-lung loving clear Abdominal ultrasound-liver is echogenic could be related to fatty infiltration Assessment: -Anterior chest wall pain that is localized to the right costochondral junction with localized significant tenderness that is reproducible. Likely acute costochondritis. The patient to start at the lower end the sternal, rule out cardiac cause -Obesity BMI 32.3 -Hepatic steatosis likely -GERD -Hyperlipidemia -Primary osteoarthritis Plan: We will get cardiology consultation. Home medications to continue. Patient is to follow with GI for his hepatic steatosis. Patient will receive anti- inflammatory for the same. Other home medications to continue. Lovenox for DVT prophylaxis. Care was discussed with the patient. Past Medical History Past Medical History: Cancer, Chest Pain / Angina, GERD/Reflux, Hyperlipidemia, Osteoarthritis (OA), Skin Disorder, Sleep Apnea/CPAP/BIPAP Additional Past Medical History / Comment(s): HAVING LOOSE STOOLS, HX OF bladder cancer, inner bladder chemo tx -august, bladder staph infection post surgical that affected the kidneys, excema, undiagnosed sleep apnea History of Any Multi-Drug Resistant Organisms: None Reported Past Surgical History: Tonsillectomy Additional Past Surgical History / Comment(s): bladder TUMORS REMOVED, 3 FIRST SX, 1 SECOND SX, SINUS SX, COLONOSCOPY, removed calcifications in bladder, Past Anesthesia/Blood Transfusion Reactions: No Reported Reaction Past Psychological History: Anxiety Smoking Status: Current every day smoker Past Alcohol Use History: Daily Additional Past Alcohol Use History / Comment(s): 1ppd Past Drug Use History: Marijuana Additional Drug Use History / Comment(s): . - Past Family History Father Family Medical History: Diabetes Mellitus, Hyperlipidemia Additional Family Medical History / Comment(s): fatty liver disease, pacemaker Brother(s) Family Medical History: Hyperlipidemia Sister(s) Family Medical History: Hyperlipidemia Medications and Allergies Home Medications Medication Instructions Recorded Confirmed Type Sertraline [Zoloft] 100 mg PO BID 01/26/17 05/22/19 History Atorvastatin [Lipitor] 80 mg PO DAILY 05/22/19 05/22/19 History Ergocalciferol [Vitamin D2] 50,000 unit PO FR 05/22/19 05/22/19 History Ibuprofen [Motrin] 600 mg PO AC-TID PRN 05/22/19 05/22/19 History Omeprazole 20 mg PO AC-BRKFST 05/22/19 05/22/19 History Allergies Allergy/AdvReac Type Severity Reaction Status Date / Time meperidine [From Demerol] Allergy Anaphylaxis Verified 05/22/19 16:34 Physical Exam Vitals: Vital Signs Temp Pulse Pulse Resp BP BP Pulse Ox 05/22/19 20:00 97.7 F 78 18 124/80 96 05/22/19 17:24 98.4 F 76 16 147/98 98 05/22/19 16:30 81 18 132/82 98 05/22/19 16:00 78 18 127/88 98 05/22/19 15:30 81 18 126/83 98 05/22/19 14:59 99 05/22/19 14:48 97.6 F 100 18 165/103 97 Intake and Output 05/22/19 05/22/19 05/22/19 06:59 14:59 22:59 Other: Voiding Method Toilet # Voids 1 Weight 93.44 kg 93.44 kg Results CBC & Chem 7: 05/22/19 15:08 05/22/19 15:08 Labs: Abnormal Lab Results - Last 24 Hours (Table) 05/22/19 Range/Units 15:08 Carbon Dioxide 21 L (22-30) mmol/L Glucose 147 H (74-99) mg/dL AST 67 H (17-59) U/L ALT 153 H (4-49) U/L Alkaline Phosphatase 200 H (38-126) U/L Thrombosis Risk Factor Assmnt - Choose All That Apply Any of the Below Risk Factors Present?: Yes Each Factor Represents 1 point: Age 41-60 years, Obesity (BMI >25) Other Risk Factors: No Other congenital or acquired thrombophilia - If yes, enter type in comment: No Thrombosis Risk Factor Assessment Total Risk Factor Score: 2 Thrombosis Risk Factor Assessment Level: Low Risk
[2019-05-23 03:35] LABS: Cholesterol 141 mg/dL (<200); HDL Cholesterol 28 mg/dL (40-60); LDL Cholesterol,Calculated 60 mg/dL (0-99); Triglycerides 265 mg/dL (<150)
[2019-05-23] MEDS ORDERED: PANTOPRAZOLE 40 MG TABLET PO SCH (07:30)
[2019-05-23] MEDS: SERTRALINE 100 MG TAB PO SCH (08:40)
[2019-05-23] MEDS ORDERED: ASPIRIN 325 MG TAB PO SCH (09:00)
[2019-05-23] MEDS ORDERED: ATORVASTATIN 80 MG TAB PO SCH (09:00)
--- NOTE | 2019-05-23 10:39 | P.CRDCN ---
History of Present Illness History of present illness: HISTORY OF PRESENTING ILLNESS This is a pleasant 43-year-old male past medical history significant for bladder cancer, dyslipidemia and chronic nicotine dependence. 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 We have been asked to see in consultation for chest pain. He has been experiencing a discomfort in the midsternal region for the previous one week. The pain has been rather constant and consists. It is worsened on palpation, movement of his torso or arms or when he gets up and moves around. It is not associated with shortness of breath, dizziness, palpitations, diaphoresis, nausea, vomiting or cough. There is no radiation to the arm, back, neck or jaw. He states a few weeks ago he was diagnosed with dyslipidemia and started on Lipitor. According to the patient his liver enzymes have been elevat ed for over 2 months of unknown etiology. He states he has had loose stools that are somewhat yellow in color over the previous few days. DIAGNOSTICS EKG reveals sinus mechanism with no acute ST or T wave abnormalities noted. Chest xray active for an acute cardiopulmonary process. Laboratory reviewed, CBC unremarkable, d-dimer 0.56, sodium 137, potassium 4.1, creatinine 0.73, magnesium 2.0, AST 67, ALT 153, alkaline phosphatase 200, cardiac enzymes negative 3, LDL 60. Current cardiac medications include atorvastatin 80 mg daily. REVIEW OF SYSTEMS At the time of my exam: CONSTITUTIONAL: Denies fever or chills. CARDIOVASCULAR: Denies chest pain, shortness of breath, orthopnea, PND or palp itations. RESPIRATORY: Denies cough. GASTROINTESTINAL: Denies abdominal pain, diarrhea, constipation, nausea or vomiting. MUSCULOSKELETAL: Denies myalgias. NEUROLOGIC: Denies numbness, tingling or weakness. ENDOCRINE: Denies fatigue, weight change, polydipsia or polyurina. GENITOURINARY: Denies burning, hematuria or urgency with micturation. HEMATOLOGIC: Denies history of anemia or bleeding. PHYSICAL EXAMINATION Blood pressure 123/78 heart rate 69 afebrile and maintaining oxygen saturation o n room air. CONSTITUTIONAL: No apparent distress. HEENT: Head is normocephalic. Pupils are equal, round. Sclerae anicteric. Mucous membranes of the mouth are moist. No JVD. No carotid bruit. CHEST EXAMINATION: Lungs are clear to auscultation. No chest wall tenderness is noted on palpation or with deep breathing. HEART EXAMINATION: Regular rate and rhythm. S1, S2 heard. No murmurs, gallops or rub. ABDOMEN: Soft, nontender. Positive bowel sounds. EXTREMITIES: 2+ peripheral pulses, no lower extremity edema and no calf tenderness. NEUROLOGIC EXAMINATION: Patient is awake, alert and oriented x3. ASSESSMENT Chest pain, atypical. An acute event has been ruled out. Reproducible with musculoskeletal features Elevated liver enzymes of unknown etiology History of bladder cancer Chronic nicotine dependence PLAN Acute coronary event has been ruled out. Obtain 2-D echocardiogram and Doppler study to assess cardiac structure and function. Perform stress echocardiogram to assess for stress-induced cardiac ischemia. Ongoing medical management and evaluation of liver enzymes and stool changes la tely. Consider GI evaluation. Discontinue Lipitor. LDL is 60. Thank you kindly for this consultation. Nurse Practitioner note has been reviewed, I agree with a documented findings and plan of care. Patient was seen and examined. Past Medical History Past Medical History: Cancer, Chest Pain / Angina, GERD/Reflux, Hyperlipidemia, Osteoarthritis (OA), Skin Disorder, Sleep Apnea/CPAP/BIPAP Additional Past Medical History / Comment(s): HAVING LOOSE STOOLS, HX OF bladder cancer, inner bladder chemo tx -august, bladder staph infection post surgical that affected the kidneys, excema, undiagnosed sleep apnea History of Any Multi-Drug Resistant Organisms: None Reported Past Surgical History: Tonsillectomy Additional Past Surgical History / Comment(s): bladder TUMORS REMOVED, 3 FIRST SX, 1 SECOND SX, SINUS SX, COLONOSCOPY, removed calcifications in bladder, Past Anesthesia/Blood Transfusion Reactions: No Reported Reaction Past Psychological History: Anxiety Smoking Status: Current every day smoker Past Alcohol Use History: Daily Additional Past Alcohol Use History / Comment(s): 1ppd Past Drug Use History: Marijuana Additional Drug Use History / Comment(s): . - Past Family History Father Family Medical History: Diabetes Mellitus, Hyperlipidemia Additional Family Medical History / Comment(s): fatty liver disease, pacemaker Brother(s) Family Medical History: Hyperlipidemia Sister(s) Family Medical History: Hyperlipidemia Medications and Allergies Home Medications Medication Instructions Recorded Confirmed Type Sertraline [Zoloft] 100 mg PO BID 01/26/17 05/22/19 History Atorvastatin [Lipitor] 80 mg PO DAILY 05/22/19 05/22/19 History Ergocalciferol [Vitamin D2] 50,000 unit PO FR 05/22/19 05/22/19 History Ibuprofen [Motrin] 600 mg PO AC-TID PRN 05/22/19 05/22/19 History Omeprazole 20 mg PO AC-BRKFST 05/22/19 05/22/19 History Allergies Allergy/AdvReac Type Severity Reaction Status Date / Time meperidine [From Demerol] Allergy Anaphylaxis Verified 05/22/19 16:34 Physical Exam Vitals: Vital Signs Temp Pulse Pulse Pulse Resp BP BP 05/23/19 07:46 97.9 F 69 18 05/23/19 03:47 66 18 05/23/19 03:45 98.3 F 66 18 129/79 05/22/19 23:42 71 18 05/22/19 23:38 98.2 F 71 18 116/73 05/22/19 20:00 97.7 F 78 18 124/80 05/22/19 17:24 98.4 F 76 16 147/98 05/22/19 16:30 81 18 132/82 05/22/19 16:00 78 18 127/88 05/22/19 15:30 81 18 126/83 05/22/19 14:59 99 05/22/19 14:48 97.6 F 100 18 165/103 BP Pulse Ox 05/23/19 07:46 123/78 05/23/19 03:47 05/23/19 03:45 99 05/22/19 23:42 05/22/19 23:38 97 05/22/19 20:00 96 05/22/19 17:24 98 05/22/19 16:30 98 05/22/19 16:00 98 05/22/19 15:30 98 05/22/19 14:59 05/22/19 14:48 97 Intake and Output 05/22/19 05/23/19 05/23/19 22:59 06:59 14:59 Intake Total 72.42 Balance 72.42 Intake: Intake, IV Titration 72.42 Amount Heparin Sod,Pork in 0.45% 72.42 NaCl 25,000 unit In 0.45 % NaCl 1 250ml.bag @ 10.7 UNITS/KG/HR 9.998 mls/hr IV .Q24H [facility] Rx#: [id number] Other: Voiding Method Toilet Toilet Toilet # Voids 1 1 Weight 93.44 kg 94.1 kg Results 05/22/19 15:08 05/22/19 15:08 Cardiac Enzymes 05/22/19 05/22/19 05/22/19 Range/Units 15:08 15:08 21:17 AST 67 H (17-59) U/L Troponin I <0.012 <0.012 (0.000-0.034) ng/mL 05/23/19 Range/Units 02:58 AST (17-59) U/L Troponin I <0.012 (0.000-0.034) ng/mL Coagulation 05/22/19 Range/Units 15:08 PT 9.5 (9.0-12.0) sec APTT 22.5 (22.0-30.0) sec Lipids 05/23/19 Range/Units 02:58 Triglycerides 265 H (<150) mg/dL Cholesterol 141 (<200) mg/dL HDL Cholesterol 28 L (40-60) mg/dL CBC 05/22/19 Range/Units 15:08 WBC 8.0 (3.8-10.6) k/uL RBC 5.19 (4.30-5.90) m/uL Hgb 15.7 (13.0-17.5) gm/dL Hct 45.4 (39.0-53.0) % Plt Count 224 (150-450) k/uL Comprehensive Metabolic Panel 05/22/19 Range/Units 15:08 Sodium 137 (137-145) mmol/L Potassium 4.1 (3.5-5.1) mmol/L Chloride 106 (98-107) mmol/L Carbon Dioxide 21 L (22-30) mmol/L BUN 17 (9-20) mg/dL Creatinine 0.73 (0.66-1.25) mg/dL Glucose 147 H (74-99) mg/dL Calcium 9.3 (8.4-10.2) mg/dL AST 67 H (17-59) U/L ALT 153 H (4-49) U/L Alkaline Phosphatase 200 H (38-126) U/L Total Protein 7.6 (6.3-8.2) g/dL Albumin 4.6 (3.5-5.0) g/dL Current Medications Generic Name Dose Route Start Last Admin Trade Name Freq PRN Reason Stop Dose Admin Aspirin 325 mg 05/23/19 09:00 05/23/19 08:39 Aspirin PO 325 mg DAILY [facility] Administration Ergocalciferol 50,000 unit 05/24/19 12:00 Vitamin D2 PO [facility] Ketorolac Tromethamine 15 mg 05/22/19 21:00 Toradol IVP 05/26/19 18:00 Q6HR PRN Pain Nicotine 1 patch 05/22/19 19:00 05/22/19 19:15 Habitrol 21mg/24hr Patch TRANSDERM 1 patch DAILY [facility] Administration Nitroglycerin 0.4 mg 05/22/19 16:18 Nitrostat SUBLINGUAL Q5M PRN Chest Pain Pantoprazole Sodium 40 mg 05/23/19 07:30 05/23/19 08:40 Protonix PO 40 mg AC-BRKFST [facility] Administration Sertraline HCl 100 mg 05/22/19 21:00 05/23/19 08:40 Zoloft PO 100 mg BID [facility] Administration Intake and Output 05/22/19 05/23/19 05/23/19 22:59 06:59 14:59 Intake Total 72.42 Balance 72.42 Intake: Intake, IV Titration 72.42 Amount Heparin Sod,Pork in 0.45% 72.42 NaCl 25,000 unit In 0.45 % NaCl 1 250ml.bag @ 10.7 UNITS/KG/HR 9.998 mls/hr IV .Q24H [facility] Rx#: [id number] Other: Voiding Method Toilet Toilet Toilet # Voids 1 1 Weight 93.44 kg 94.1 kg 05/22/19 15:08 05/22/19 15:08
[2019-05-23 11:42] VITALS: BP 114/75; PULSE 81; TEMP 98.8
--- NOTE | 2019-05-23 12:23 | ECHOS ---
STRESS ECHOCARDIOGRAM INDICATIONS: Chest pain. MEDICATIONS: Zoloft, Motrin, vitamin D2, Lipitor, omeprazole. BASELINE HEART RATE: 66 BASELINE BLOOD PRESSURE: 101/61 MAXIMUM HEART RATE: 164 MAXIMUM BLOOD PRESSURE: 164/91 85% MPHR: 150 100% MPHR: 177 METS: 12.1 MAXIMUM STAGE REACHED: IV TOTAL EXERCISE TIME: 10:35 CLINICAL INFORMATION: Baseline EKG shows sinus rhythm, normal axis, normal intervals. Patient exercised on Jai protocol for a total of 10.5 minutes achieving 12 METS, 93% of predicted maximal heart rate without chest pain or diagnostic ST-segment depression. Baseline echo shows normal left ventricular size, wall motion, systolic function. Postexercise there is normal hyperdynamic response of all segments of myocardium noted. CONCLUSION: 1. Excellent exercise tolerance. 2. Negative stress test by EKG criteria. 3. Negative stress echo. MMCIERRA / MARIAELENA: [id number] /
[2019-05-23] MEDS: NICOTINE 21MG/24HR PATCH TRANSDERM SCH (12:49)
[2019-05-23 17:12] LABS: Hemoglobin A1C 5.9 % (4.0-6.0)
[2019-05-24] MEDS ORDERED: ERGOCALCIFEROL 50,000 UNIT CAP PO SCH (12:00)
--- NOTE | 2019-05-25 21:41 | P.DS ---
Providers Date of admission: 05/22/19 16:09 Expected date of discharge: 05/23/19 Attending physician: Baldev Covington Consults: 05/22/19 16:18 Consult Physician Urgent Consulting Provider: Price Gomez Consult Reason/Comments: chest pain Do you want consulting provider notified?: Yes Primary care physician: Mega Martinez [facility] Course: Chief Complaint: Chest pain History of presenting complaint: This is a very pleasant 42-year-old patient of Dr. Martinez. Chronic stable Medical conditions include GERD, hyperlipidemia, osteoarthritis. Patient pr esents with central chest pain of one-day duration. Initially started off below the sternal and and then localized to the right side. Reproducible tender. Worse with body movements. The tenderness itself did not radiate to the arm or neck. No shortness of breath. No dizziness no lightheadedness. No prior cardiac history. Seen by Mitul Levin. Stress echocardiogram was done. Negative. [place] to be costochondritis. Consultation: Dr. Derek Juárez from cardiology Physical examination: VITAL SIGNS: 98.8, 81, 18, 114/75, 96% room air GENERAL: [BMI 32.3, sitting up in bed, in comfortable. EYES: Pupils equal. Conjunctiva normal. HEENT: External appearance of nose and ears normal, oral cavity grossly normal. NECK: JVD not raised; masses not palpable. HEART: First and second heart sounds are normal; no edema. LUNGS: Respiratory rate normal; clear to auscultation. MUSCULOSKELETAL: Reproducible pain with localized tenderness at the right costochondral junctions ABDOMEN: Soft, nontender, liver spleen not palpable, no masses palpable. PSYCH: Alert and oriented x3; mood and affect normal. INVESTIGATIONS, reviewed in the clinical context: White count 8 hemoglobin 15.7 potassium 4.1 creatinine 0.73 AST 67 ALT 153 troponin I less than 0.012 EKG tracing personally reviewed by me-normal sinus rhythm Chest x-ray film personally reviewed by me-lung loving clear Abdominal ultrasound-liver is echogenic could be related to fatty infiltration Stress echocardiogram-reported to be negative for ischemia Assessment: -Anterior chest wall pain that is localized to the right costochondral junction with localized significant tenderness that is reproducible. Likely acute costochondritis. -Obesity BMI 32.3 -Hepatic steatosis likely -GERD -Hyperlipidemia -Primary osteoarthritis Disposition: Home Patient Condition at Discharge: Fair Plan - Discharge Summary Discharge Rx Participant: No New Discharge Prescriptions: Discontinued Atorvastatin [Lipitor] 80 mg PO DAILY No Action Sertraline [Zoloft] 100 mg PO BID Ibuprofen [Motrin] 600 mg PO AC-TID PRN PRN Reason: Pain Ergocalciferol [Vitamin D2] 50,000 unit PO FR Omeprazole 20 mg PO AC-BRKFST Discharge Medication List Sertraline [Zoloft] 100 mg PO BID 01/26/17 [History] Ergocalciferol [Vitamin D2] 50,000 unit PO FR 05/22/19 [History] Ibuprofen [Motrin] 600 mg PO AC-TID PRN 05/22/19 [History] Omeprazole 20 mg PO AC-BRKFST 05/22/19 [History] Follow up Appointment(s)/Referral(s): Mega Martinez MD [Primary Care Provider] - 05/24/19 8:30 am Benjamín Juárez MD [STAFF PHYSICIAN] - 05/30/19 9:15 am Patient Instructions/Handouts: Chest Pain (DC)
--- NOTE | 2019-06-13 17:05 | ECHOF ---
Referral Reason:cp MEASUREMENTS -------- HEIGHT: 170.2 cm WEIGHT: 93.4 kg BP: RVIDd: 2.7 cm (< 3.3) IVSd: 1.3 cm (0.6 - 1.1) LVIDd: 4.1 cm (3.9 - 5.3) LVPWd: 1.4 cm (0.6 - 1.1) IVSs: 1.8 cm LVIDs: 2.5 cm LVPWs: 1.8 cm LAESV Index (A-L): 23.58 ml/m Ao Diam: 2.4 cm (2.0 - 3.7) AV Cusp: 1.8 cm (1.5 - 2.6) LA Diam: 3.3 cm (2.7 - 3.8) MV EXCURSION: 12.495 mm (> 18.000) MV EF SLOPE: 116 mm/s (70 - 150) EPSS: 0.5 cm MV E Himanshu: 0.80 m/s MV DecT: 223 ms MV A Himanshu: 0.59 m/s MV E/A Ratio: 1.35 RAP: 5.00 mmHg RVSP: 13.79 mmHg FINDINGS -------- Sinus rhythm. This was a technically good study. The left ventricular size is normal. There is moderate concentric left ventricular hypertrophy. O verall left ventricular systolic function is normal with, an EF between 55 - 60 %. The diastolic fi lling pattern is normal for the age of the patient 10.62. The right ventricle is normal in size. The left atrial size is normal. Normal LA size by volume 22+/-6 ml/m2. The right atrial size is normal. The aortic valve is trileaflet and appears structurally normal. The mitral valve is normal. There is trace mitral regurgitation. The tricuspid valve appears structurally normal. Trace tricuspid regurgitation present. Right alix tricular systolic pressure is normal at < 35 mmHg. There is no pulmonic regurgitation present. The aortic root size is normal. IVC Not well visulized. There is no pericardial effusion. CONCLUSIONS -------- 1. Sinus rhythm. 2. This was a technically good study. 3. The left ventricular size is normal. 4. There is moderate concentric left ventricular hypertrophy. 5. Overall left ventricular systolic function is normal with, an EF between 55 - 60 %. 6. The diastolic filling pattern is normal for the age of the patient 10.62 7. The right ventricle is normal in size. 8. The left atrial size is normal. 9. Normal LA size by volume 22+/-6 ml/m2. 10. The right atrial size is normal. 11. The aortic valve is trileaflet and appears structurally normal. 12. The mitral valve is normal. 13. There is trace mitral regurgitation. 14. The tricuspid valve appears structurally normal. 15. Trace tricuspid regurgitation present. 16. Right ventricular systolic pressure is normal at < 35 mmHg. 17. There is no pulmonic regurgitation present. 18. The aortic root size is normal. 19. IVC Not well visulized. 20. There is no pericardial effusion. HERBICIDE SPRAYER: Leatha Huang RDCS
== END 2019-05-23 14:45 ==
LOC: EC 14:47 → 1SOBS 16:09
PROVIDERS: ADMIT Hospitalist; ATTEND Hospitalist
DX: R07.89 Other chest pain (principal); E66.9 Obesity, unspecified; Z68.32 Body mass index [BMI] 32.0-32.9, adult; K76.0 Fatty (change of) liver, not elsewhere classified; E78.5 Hyperlipidemia, unspecified; M19.91 Primary osteoarthritis, unspecified site; F17.210 Nicotine dependence, cigarettes, uncomplicated; R74.8 Abnormal levels of other serum enzymes; L98.9 Disorder of the skin and subcutaneous tissue, unspecified; G47.30 Sleep apnea, unspecified; F41.9 Anxiety disorder, unspecified; Z85.51 Personal history of malignant neoplasm of bladder; Z92.21 Personal history of antineoplastic chemotherapy; Z88.5 Allergy status to narcotic agent; Z79.899 Other long term (current) drug therapy; Z79.891 Long term (current) use of opiate analgesic; Z79.1 Long term (current) use of non-steroidal anti-inflammatories (NSAID); Z83.3 Family history of diabetes mellitus
CPT/HCPCS: 93005 ×2; 96366; 96376; 96365; 96375; 99285; 36415; 93306; 93351; 85379; 80061; 80053; 83690; 83735; 84484 ×2; 85025; 85610; 85730; 83036; 71046; 76705; G0378 ×2; S4990; J1644 ×2; J1885

== ENCOUNTER 2019-05-28 15:45 | Emergency (ER) | payer OTHER ==
[2019-05-28 16:17] VITALS: BP 129/83; PULSE 97; RESP 20; TEMP 98.1
--- NOTE | 2019-05-28 16:42 | ED ---
Lower Extremity Injury HPI - General Chief Complaint: Extremity Injury, Lower Stated Complaint: ankle pain/swelling Time Seen by Provider: 05/28/19 16:23 Source: patient Mode of arrival: ambulatory Limitations: no limitations - History of Present Illness Initial Comments: Patient is a 43-year-old male presenting to the emergency Department with complaints of left ankle pain for one day. Patient states he jumped off the bed of his truck onto the ground and rolled his left ankle yesterday. Patient states he has been doing elevation as well as ice but states the pain has been progressively getting worse as well as increase in swelling and bruising. He denies any previous injuries or surgeries to the left ankle or foot. He denies having left knee, or low back pain. He denies hitting his head from his fall. He has no other complaints at this time. Upon arrival to the ER his vitals are stable. - Related Data Home Medications Medication Instructions Recorded Confirmed Sertraline [Zoloft] 100 mg PO BID 01/26/17 05/22/19 Ergocalciferol [Vitamin D2] 50,000 unit PO FR 05/22/19 05/22/19 Ibuprofen [Motrin] 600 mg PO AC-TID PRN 05/22/19 05/22/19 Omeprazole 20 mg PO AC-BRKFST 05/22/19 05/22/19 Allergies Allergy/AdvReac Type Severity Reaction Status Date / Time meperidine [From Demerol] Allergy Anaphylaxis Verified 05/28/19 16:17 Review of Systems ROS Statement: Those systems with pertinent positive or pertinent negative responses have been documented in the HPI. ROS Other: All systems not noted in ROS Statement are negative. Past Medical History Past Medical History: Cancer, Chest Pain / Angina, GERD/Reflux, Hyperlipidemia, Osteoarthritis (OA), Skin Disorder, Sleep Apnea/CPAP/BIPAP Additional Past Medical History / Comment(s): HAVING LOOSE STOOLS, HX OF bladder cancer, inner bladder chemo tx -august, bladder staph infection post surgical that affected the kidneys, excema, undiagnosed sleep apnea History of Any Multi-Drug Resistant Organisms: None Reported Past Surgical History: Tonsillectomy Additional Past Surgical History / Comment(s): bladder TUMORS REMOVED, 3 FIRST SX, 1 SECOND SX, SINUS SX, COLONOSCOPY, removed calcifications in bladder, Past Anesthesia/Blood Transfusion Reactions: No Reported Reaction Past Psychological History: Anxiety Smoking Status: Current every day smoker Past Alcohol Use History: Daily Past Drug Use History: Marijuana - Past Family History Father Family Medical History: Diabetes Mellitus, Hyperlipidemia Additional Family Medical History / Comment(s): fatty liver disease, pacemaker Brother(s) Family Medical History: Hyperlipidemia Sister(s) Family Medical History: Hyperlipidemia General Exam - General Exam Comments Initial Comments: GENERAL: Well-appearing, well-nourished and in no acute distress. HEAD: Atraumatic, normocephalic. EYES: Pupils equal round and reactive to light, extraocular movements intact, sclera anicteric, conjunctiva are normal. ENT: Nares patent, oropharynx clear without exudates. Moist mucous membranes. NECK: Normal range of motion, supple without lymphadenopathy or JVD. LUNGS: Breath sounds clear to auscultation bilaterally and equal. No wheezes rales or rhonchi. HEART: Regular rate and rhythm without murmurs, rubs or gallops. ABDOMEN: Soft, nontender, normoactive bowel sounds. No guarding, no rebound. No masses appreciated. EXTREMITIES: Patient has pain with palpation of the lateral malleolus of the left ankle, mild pain of the medial malleolus. Patient has moderate amount of swelling mostly along the lateral malleolus as well as bruising. He is neurovascularly intact. He does have decreased range of motion of the left ankle secondary to pain and swelling. He has mild pain with palpation of the dorsum of the foot. No pain of the left knee. No clubbing or cyanosis. PSYCH: Normal mood, normal affect. SKIN: Warm, Dry, normal turgor, no rashes or lesions noted. Limitations: no limitations Course Vital Signs 05/28/19 16:13 Temperature 98.1 F Pulse Rate 97 Respiratory 20 Rate Blood Pressure 129/83 O2 Sat by Pulse 97 Oximetry Procedures - Orthopedic Splinting/Casting Injury #1 Side: left Lower Extremity Injury Location: ankle Lower Extremity Immobilizer: stirrup splint, Raffaele wrap Medical Decision Making - Medical Decision Making Patient is a 43-year-old male presenting with left ankle pain after spraining it yesterday while jumping off a bed of a truck. No other injuries from the fall. X-rays revealed no acute fractures/dislocations. Discussed with patient this is a moderate ankle sprain. Patient will be given Raffaele wrap to use for compression as well as an ankle stirrup brace to use for support. He will follow up with PCP as symptoms do not improve in 1-2 weeks. He is stable for discharge at this time. Return parameters were discussed with the patient and he verbalized understanding. Disposition Clinical Impression: Left ankle sprain Disposition: HOME SELF-CARE Condition: Stable Instructions (If sedation given, give patient instructions): Ankle Sprain (ED) Additional Instructions: Please return to the Emergency Department if symptoms worsen or any other concerns. Continue to ice, elevate, compression. Wear brace as needed for support. Use Motrin for pain relief and swelling. Follow-up with PCP in 1- 2 weeks if symptoms persist. Is patient prescribed a controlled substance at d/c from ED?: No Referrals: Mega Martinez MD [Primary Care Provider] - 1-2 days
--- NOTE | 2019-05-28 17:21 | XR ---
EXAMINATION TYPE: XR ankle complete LT DATE OF EXAM: 05/28/2019 COMPARISON: NONE HISTORY: Pain TECHNIQUE: 3 views FINDINGS: There is soft tissue swelling over the lateral malleolus. Ankle mortise appears intact. The re is some subchondral lucency in the lateral aspect of the dome of the talus. There is no displaced fracture. IMPRESSION: Degenerative cyst formation in the subchondral dome of the talus on the lateral aspect. N o acute fracture seen. Soft tissue swelling. Small Achilles calcaneal spur.
--- NOTE | 2019-05-28 17:22 | XR ---
EXAMINATION TYPE: XR foot complete LT DATE OF EXAM: 05/28/2019 COMPARISON: NONE HISTORY: Pain after a fall TECHNIQUE: 3 views FINDINGS: Metatarsals are intact. I see no fracture nor dislocation. Joint spaces are fairly normal. There are small Achilles calcaneal spur. IMPRESSION: No fracture seen.
== END 2019-05-28 18:49 | disposition home or self-care (01) ==
LOC: EC 15:45
DX: S93.402A Sprain of unspecified ligament of left ankle, initial encounter (principal); F41.9 Anxiety disorder, unspecified; K21.9 Gastro-esophageal reflux disease without esophagitis; I25.2 Old myocardial infarction; M19.90 Unspecified osteoarthritis, unspecified site; F17.200 Nicotine dependence, unspecified, uncomplicated; Z79.899 Other long term (current) drug therapy; Z88.5 Allergy status to narcotic agent; Z85.51 Personal history of malignant neoplasm of bladder; Z92.21 Personal history of antineoplastic chemotherapy; X50.1XXA Overexertion from prolonged static or awkward postures, initial encounter; Y93.39 Activity, other involving climbing, rappelling and jumping off; Y92.009 Unspecified place in unspecified non-institutional (private) residence as the place of occurrence of the external cause
CPT/HCPCS: 29515; 99283

== ENCOUNTER 2020-01-03 08:49 | Emergency (ER) | payer OTHER ==
[2020-01-03] MEDS ORDERED: ACETAMINOPHEN TAB 500 MG TAB PO STA (09:13)
--- NOTE | 2020-01-03 09:21 | ED ---
General Adult HPI - General Chief complaint: Fever Stated complaint: FEVER Time Seen by Provider: 01/03/20 08:55 Source: patient, RN notes reviewed, old records reviewed Mode of arrival: ambulatory Limitations: no limitations - History of Present Illness Initial comments: This a 44-year-old male who presents to the emergency department complaining of having fever for the last 2 days. Patient states he got up to 103. Patient states he has a little bit of cough with slight sputum production but nothing significant. Patient denies any difficulty breathing shortness of breath. Patient denies any dysuria hematuria urinary frequency. Patient denies any chest pain. Patient denies any palpitations. Patient denies any abdominal pain patient denies nausea vomiting diarrhea. Patient denies any neck pain or stiffness. Patient denies any rashes or lesions or any areas of erythema. Patient states besides the fever and generalized body aches he has no complaints. - Related Data Home Medications Medication Instructions Recorded Confirmed Sertraline [Zoloft] 200 mg PO HS 01/26/17 01/03/20 Ergocalciferol [Vitamin D2] 50,000 unit PO WE 05/22/19 01/03/20 Ibuprofen [Motrin] 600 mg PO TID PRN 05/22/19 01/03/20 Omeprazole 20 mg PO AC-BRKFST 05/22/19 01/03/20 Atorvastatin Calcium [Lipitor] 80 mg PO HS 01/03/20 01/03/20 Allergies Allergy/AdvReac Type Severity Reaction Status Date / Time meperidine [From Demerol] Allergy Anaphylaxis Verified 01/03/20 10:11 Review of Systems ROS Statement: Those systems with pertinent positive or pertinent negative responses have been documented in the HPI. ROS Other: All systems not noted in ROS Statement are negative. Past Medical History Past Medical History: Cancer, Chest Pain / Angina, GERD/Reflux, Hyperlipidemia, Osteoarthritis (OA), Skin Disorder, Sleep Apnea/CPAP/BIPAP Additional Past Medical History / Comment(s): HAVING LOOSE STOOLS, HX OF bladder cancer, inner bladder chemo tx -august, bladder staph infection post surgical that affected the kidneys, excema, undiagnosed sleep apnea History of Any Multi-Drug Resistant Organisms: None Reported Past Surgical History: Tonsillectomy Additional Past Surgical History / Comment(s): bladder TUMORS REMOVED, 3 FIRST SX, 1 SECOND SX, SINUS SX, COLONOSCOPY, removed calcifications in bladder, Past Anesthesia/Blood Transfusion Reactions: No Reported Reaction Past Psychological History: Anxiety Smoking Status: Current every day smoker Past Alcohol Use History: Rare Past Drug Use History: Marijuana - Past Family History Father Family Medical History: Diabetes Mellitus, Hyperlipidemia Additional Family Medical History / Comment(s): fatty liver disease, pacemaker Brother(s) Family Medical History: Hyperlipidemia Sister(s) Family Medical History: Hyperlipidemia General Exam - General Exam Comments Initial Comments: GENERAL: Patient is well-developed and well-nourished. Patient is nontoxic and well- hydrated and is in mild distress. ENT: Neck is soft and supple. No significant lymphadenopathy is noted. Oropharynx is clear. Moist mucous membranes. Neck has full range of motion without eliciting any pain. EYES: The sclera were anicteric and conjunctiva were pink and moist. Extraocular movements were intact and pupils were equal round and reactive to light. Eyelids were unremarkable. PULMONARY: Unlabored respirations. Good breath sounds bilaterally. No audible rales rhonchi or wheezing was noted. CARDIOVASCULAR: There is a regular rate and rhythm without any murmurs gallops or rubs. ABDOMEN: Soft and nontender with normal bowel sounds. No palpable organomegaly was noted. There is no palpable pulsatile mass. SKIN: Skin is clear with no lesions or rashes and otherwise unremarkable. NEUROLOGIC: Patient is alert and oriented x3. Cranial nerves II through XII are grossly intact. Motor and sensory are also intact. Normal speech, volume and content. Symmetrical smile. MUSCULOSKELETAL: Normal extremities with adequate strength and full range of motion. No lower extremity swelling or edema. No calf tenderness. LYMPHATICS: No significant lymphadenopathy is noted PSYCHIATRIC: Normal psychiatric evaluation. Limitations: no limitations Course Vital Signs 01/03/20 01/03/20 01/03/20 08:53 09:08 10:46 Temperature 100.1 F H 98.9 F Pulse Rate 116 H 84 Respiratory 16 18 18 Rate Blood Pressure 150/92 122/75 O2 Sat by Pulse 99 100 Oximetry Medical Decision Making - Medical Decision Making EKG shows normal sinus rhythm at [address] interval is 138 QRS is 76 QT interval 354 QTC is 45. Patient's EKG shows no ST segment elevation or depression. - Lab Data Result diagrams: 01/03/20 09:24 01/03/20 09:24 Lab Results 01/03/20 01/03/20 01/03/20 Range/Units 09:24 09:24 09:24 WBC 4.6 (3.8-10.6) k/uL RBC 5.48 (4.30-5.90) m/uL Hgb 16.6 (13.0-17.5) gm/dL Hct 49.1 (39.0-53.0) % MCV 89.5 (80.0-100.0) fL MCH 30.3 (25.0-35.0) pg MCHC 33.9 (31.0-37.0) g/dL RDW 13.3 (11.5-15.5) % Plt Count 140 L (150-450) k/uL Neutrophils % 82 % Lymphocytes % 11 % Monocytes % 4 % Eosinophils % 1 % Basophils % 1 % Neutrophils # 3.8 (1.3-7.7) k/uL Lymphocytes # 0.5 L (1.0-4.8) k/uL Monocytes # 0.2 (0-1.0) k/uL Eosinophils # 0.1 (0-0.7) k/uL Basophils # 0.0 (0-0.2) k/uL PT 10.0 (9.0-12.0) sec INR 1.0 (<1.2) APTT 21.3 L (22.0-30.0) sec Sodium (137-145) mmol/L Potassium (3.5-5.1) mmol/L Chloride (98-107) mmol/L Carbon Dioxide (22-30) mmol/L Anion Gap mmol/L BUN (9-20) mg/dL Creatinine (0.66-1.25) mg/dL Est GFR (CKD-EPI)AfAm (>60 ml/min/1.73 sqM) Est GFR (CKD-EPI)NonAf (>60 ml/min/1.73 sqM) Glucose (74-99) mg/dL Plasma Lactic Acid Jimy (0.7-2.0) mmol/L Calcium (8.4-10.2) mg/dL Total Bilirubin (0.2-1.3) mg/dL AST (17-59) U/L ALT (4-49) U/L Alkaline Phosphatase (38-126) U/L Total Protein (6.3-8.2) g/dL Albumin (3.5-5.0) g/dL Urine Color Yellow Urine Appearance Clear (Clear) Urine pH 6.0 (5.0-8.0) Ur Specific [place] 1.025 (1.001-1.035) Urine Protein Trace H (Negative) Urine Glucose (UA) Negative (Negative) Urine Ketones Negative (Negative) Urine Blood Small H (Negative) Urine Nitrite Negative (Negative) Urine Bilirubin Negative (Negative) Urine Urobilinogen <2.0 (<2.0) mg/dL Ur Leukocyte Esterase Negative (Negative) Urine RBC 10 H (0-5) /hpf Urine WBC 1 (0-5) /hpf Ur Squamous Epith Cells <1 (0-4) /hpf Urine Mucus Occasional H (None) /hpf Influenza Type A RNA (Not Detectd) Influenza Type B (PCR) (Not Detectd) 01/03/20 01/03/20 01/03/20 Range/Units 09:24 09:24 09:24 WBC (3.8-10.6) k/uL RBC (4.30-5.90) m/uL Hgb (13.0-17.5) gm/dL Hct (39.0-53.0) % MCV (80.0-100.0) fL MCH (25.0-35.0) pg MCHC (31.0-37.0) g/dL RDW (11.5-15.5) % Plt Count (150-450) k/uL Neutrophils % % Lymphocytes % % Monocytes % % Eosinophils % % Basophils % % Neutrophils # (1.3-7.7) k/uL Lymphocytes # (1.0-4.8) k/uL Monocytes # (0-1.0) k/uL Eosinophils # (0-0.7) k/uL Basophils # (0-0.2) k/uL PT (9.0-12.0) sec INR (<1.2) APTT (22.0-30.0) sec Sodium 137 (137-145) mmol/L Potassium 4.2 (3.5-5.1) mmol/L Chloride 105 (98-107) mmol/L Carbon Dioxide 24 (22-30) mmol/L Anion Gap 8 mmol/L BUN 15 (9-20) mg/dL Creatinine 0.84 (0.66-1.25) mg/dL Est GFR (CKD-EPI)AfAm >90 (>60 ml/min/1.73 sqM) Est GFR (CKD-EPI)NonAf >90 (>60 ml/min/1.73 sqM) Glucose 118 H (74-99) mg/dL Plasma Lactic Acid Jimy 1.2 (0.7-2.0) mmol/L Calcium 9.2 (8.4-10.2) mg/dL Total Bilirubin 0.7 (0.2-1.3) mg/dL AST 85 H (17-59) U/L ALT 135 H (4-49) U/L Alkaline Phosphatase 143 H (38-126) U/L Total Protein 7.6 (6.3-8.2) g/dL Albumin 4.6 (3.5-5.0) g/dL Urine Color Urine Appearance (Clear) Urine pH (5.0-8.0) Ur Specific [place] (1.001-1.035) Urine Protein (Negative) Urine Glucose (UA) (Negative) Urine Ketones (Negative) Urine Blood (Negative) Urine Nitrite (Negative) Urine Bilirubin (Negative) Urine Urobilinogen (<2.0) mg/dL Ur Leukocyte Esterase (Negative) Urine RBC (0-5) /hpf Urine WBC (0-5) /hpf Ur Squamous Epith Cells (0-4) /hpf Urine Mucus (None) /hpf Influenza Type A RNA Not Detected (Not Detectd) Influenza Type B (PCR) Not Detected (Not Detectd) Disposition Clinical Impression: Viral syndrome, Hematuria Disposition: HOME SELF-CARE Condition: Good Instructions (If sedation given, give patient instructions): Fever in Adults (ED), Hematuria (ED) Is patient prescribed a controlled substance at d/c from ED?: No Referrals: Gordon Hightower MD [STAFF PHYSICIAN] - 1-2 days Time of Disposition: 11:51
--- NOTE | 2020-01-03 09:26 | XR ---
EXAMINATION TYPE: XR chest 2V DATE OF EXAM: 01/03/2020 CLINICAL HISTORY: Fever TECHNIQUE: Frontal and lateral views of the chest are obtained. COMPARISON: 05/22/2019 chest radiograph FINDINGS: The cardiomediastinal silhouette is within normal limits for size. Pulmonary vasculature i s normal. There is no focal air space opacity, pleural effusion, or pneumothorax seen. The osseous st ructures are intact. IMPRESSION: No acute cardiopulmonary process.
[2020-01-03] MEDS: SODIUM CHLORIDE 0.9% 500 ML 500 ML IV SCH ×2 (09:37→10:11)
[2020-01-03 09:48] LABS: Basophils % (A) 1 %; Eosinophils # (A) 0.1 k/uL (0-0.7); Eosinophils % (A) 1 %; HCT 49.1 % (39.0-53.0); HGB 16.6 gm/dL (13.0-17.5); Lymphocytes # (A) 0.5 k/uL (1.0-4.8); Lymphocytes % (A) 11 %; MCH 30.3 pg (25.0-35.0); MCHC 33.9 g/dL (31.0-37.0); MCV 89.5 fL (80.0-100.0); Mean Platelet Volume 6.9; Monocytes # (A) 0.2 k/uL (0-1.0); Monocytes % (A) 4 %; Neutrophils # (A) 3.8 k/uL (1.3-7.7); Neutrophils % (A) 82 %; Platelet Count 140 k/uL (150-450); RBC 5.48 m/uL (4.30-5.90); RDW 13.3 % (11.5-15.5); WBC 4.6 k/uL (3.8-10.6)
[2020-01-03 09:54] LABS: ALT 135 U/L (4-49); AST 85 U/L (17-59); African American GFR (CKD) >90 (>60 ml/min/1.73 sqM); Albumin 4.6 g/dL (3.5-5.0); Alkaline Phosphatase 143 U/L (38-126); Anion Gap 8 mmol/L; Blood Urea Nitrogen 15 mg/dL (9-20); Calcium 9.2 mg/dL (8.4-10.2); Carbon Dioxide 24 mmol/L (22-30); Chloride 105 mmol/L (98-107); Glucose 118 mg/dL (74-99); Non-African American GFR(CKD) >90 (>60 ml/min/1.73 sqM); Potassium 4.2 mmol/L (3.5-5.1); Sodium 137 mmol/L (137-145); Total Bilirubin 0.7 mg/dL (0.2-1.3); Total Protein 7.6 g/dL (6.3-8.2)
[2020-01-03 09:55] LABS: Appearance,Urine Clear (Clear); Bilirubin,Urine Negative (Negative); Blood,Urine Small (Negative); Color,Urine Yellow; Glucose,Urine (UA) Negative (Negative); Ketones,Urine Negative (Negative); Leukocyte Esterase,Urine Negative (Negative); Mucus,Urine Occasional /hpf; Nitrite,Urine Negative (Negative); Protein,Urine Trace (Negative); RBC,Urine 10 /hpf (0-5); Specific Gravity,Urine 1.025 (1.001-1.035); Squamous Epithelial Cell,Urine <1 /hpf (0-4); Urobilinogen,Urine <2.0 mg/dL (<2.0); WBC,Urine 1 /hpf (0-5)
[2020-01-03 10:27] LABS: Partial Thromboplastin Time 21.3 sec (22.0-30.0)
--- NOTE | 2020-01-03 11:42 | CT ---
EXAMINATION TYPE: CT abdomen pelvis w con DATE OF EXAM: 01/03/2020 COMPARISON: CT pelvis 11/08/2017 HISTORY: Hematuria, fever CT DLP: 1101.7 mGycm Automated exposure control for dose reduction was used. TECHNIQUE: Helical acquisition of images was performed from the lung bases through the pelvis. CONTRAST: Performed without Oral Contrast and with IV Contrast, patient injected with 100 mL of Isovue 300. FINDINGS: LUNG BASES: Normal. LIVER: Borderline fatty liver. Too small to characterize hypodense lesion of the left lobe. BILIARY SYSTEM: Normal. PANCREAS: Normal. SPLEEN: Normal. ADRENALS: Normal. KIDNEYS: No hydronephrosis or hydroureter. No perinephric or periureteral inflammatory change. No ellen dence of nephrolithiasis. Synchronous and homogenous renal enhancement. BOWEL: No obstruction or thickening. Normal appendix. PERITONEUM: No pneumoperitoneum. No free fluid. LYMPH NODES: No lymphadenopathy. PELVIS: Previously demonstrated bladder calcification seen on 11/09/1979 comparison is not seen on cur rent exam. Urinary bladder is underdistended and otherwise unremarkable. Redemonstrated coarse prosta tic calcification. VASCULATURE: No abdominal aortic aneurysm. MUSCULOSKELETAL: Degenerative changes of the spine. IMPRESSION: 1. No acute abdominopelvic findings. Normal kidneys and urinary bladder. 2. Borderline fatty liver.
[2020-01-03 12:13] VITALS: BP 136/86; PULSE 86; RESP 16; TEMP 99.7
== END 2020-01-03 12:11 | disposition home or self-care (01) ==
LOC: EC 08:49
DX: B34.9 Viral infection, unspecified (principal); R31.9 Hematuria, unspecified; F41.9 Anxiety disorder, unspecified; K21.9 Gastro-esophageal reflux disease without esophagitis; E78.5 Hyperlipidemia, unspecified; M19.90 Unspecified osteoarthritis, unspecified site; G47.30 Sleep apnea, unspecified; F17.200 Nicotine dependence, unspecified, uncomplicated; Z20.828 Contact with and (suspected) exposure to other viral communicable diseases; Z79.899 Other long term (current) drug therapy; Z99.89 Dependence on other enabling machines and devices; Z85.51 Personal history of malignant neoplasm of bladder; Z88.5 Allergy status to narcotic agent
CPT/HCPCS: 36415; 93005; 80053; 83605; 85025; 85610; 85730; 81001; 87040; 87502; 71046; 74177; 99284; 96360; U0003; Q9967

== ENCOUNTER 2020-02-01 18:26 | Emergency (ER) | payer OTHER ==
[2020-02-01 18:31] VITALS: BP 151/88; PULSE 99; RESP 20; TEMP 98.8
[2020-02-01] MEDS ORDERED: DIPH,PERTUS(ACELL)TETVAC-LF 0.5 ML VIAL IM ONE (18:45)
[2020-02-01] MEDS ORDERED: CEPHALEXIN 500 MG CAP PO STA ×2 (18:45→20:43)
[2020-02-01] MEDS ORDERED: LIDOCAINE 1% INJ 10MG/ML (20 ML MDV) SQ STA (19:00)
[2020-02-01] MEDS ORDERED: GELATIN SPONGE,ABSORB (LARGE) 1 EACH SPONGE TOPICAL STA (19:00)
--- NOTE | 2020-02-01 19:32 | XR ---
EXAMINATION TYPE: XR hand complete LT DATE OF EXAM: 02/01/2020 COMPARISON: NONE HISTORY: Laceration TECHNIQUE: 3 views FINDINGS: Metacarpals are intact. I see no fracture nor dislocation. Joint spaces are normal. Carpal bones are intact. The fingers appear intact. There is no evidence of foreign body. IMPRESSION: Normal exam. No fracture seen.
[2020-02-01] MEDS ORDERED: CEPHALEXIN 500MG STARTER PACK 4 CAP BTL PO STA (20:43)
--- NOTE | 2020-02-01 20:44 | ED ---
General Adult HPI - General Chief complaint: Wound/Laceration Stated complaint: injury to fingers Time Seen by Provider: 02/01/20 18:41 Source: patient, RN notes reviewed, old records reviewed Mode of arrival: ambulatory Limitations: no limitations - History of Present Illness Initial comments: 44-year-old male patient to ED for evaluation. Patient reports that he was using a drill to cut through a piece of metal when the metal became loose and spun around cutting his finger. Patient has a laceration to the second and third digit of the left hand. It is a soft tissue partial amputation-type laceration. Denies any other acute complaints. Systemic: Pt denies fatigue, fever/chills, rash. Pt denies weakness, night sweats, weight loss. Neuro: Pt denies headache, visual disturbances, syncope or pre-syncope. HEENT: Pt denies ocular discharge or irritation, otalgia, rhinorrhea, pharyngitis or notable lymphadenopathy. Cardiopulmonary: Pt denies chest pain, SOB, heart palpitations, dyspnea on exertion. Abdominal/GI: Pt denies abdominal pain, n/v/d. : Pt denies dysuria, burning w/ urination, frequency/urgency. Denies new onset urinary or bowel incontinence. MSK: Pt denies myalgia, loss of strength or function in extremities. Neuro: Pt denies new onset weakness, paresthesias. - Related Data Home Medications Medication Instructions Recorded Confirmed Sertraline [Zoloft] 200 mg PO HS 01/26/17 01/03/20 Ergocalciferol [Vitamin D2] 50,000 unit PO WE 05/22/19 01/03/20 Ibuprofen [Motrin] 600 mg PO TID PRN 05/22/19 01/03/20 Omeprazole 20 mg PO AC-BRKFST 05/22/19 01/03/20 Atorvastatin Calcium [Lipitor] 80 mg PO HS 01/03/20 01/03/20 Allergies Allergy/AdvReac Type Severity Reaction Status Date / Time meperidine [From Demerol] Allergy Anaphylaxis Verified 01/03/20 10:11 Review of Systems ROS Statement: Those systems with pertinent positive or pertinent negative responses have been documented in the HPI. ROS Other: All systems not noted in ROS Statement are negative. Past Medical History Past Medical History: Cancer, Chest Pain / Angina, GERD/Reflux, Hyperlipidemia, Osteoarthritis (OA), Skin Disorder, Sleep Apnea/CPAP/BIPAP Additional Past Medical History / Comment(s): HAVING LOOSE STOOLS, HX OF bladder cancer, inner bladder chemo tx -august, bladder staph infection post surgical that affected the kidneys, excema, undiagnosed sleep apnea History of Any Multi-Drug Resistant Organisms: None Reported Past Surgical History: Tonsillectomy Additional Past Surgical History / Comment(s): bladder TUMORS REMOVED, 3 FIRST SX, 1 SECOND SX, SINUS SX, COLONOSCOPY, removed calcifications in bladder, Past Anesthesia/Blood Transfusion Reactions: No Reported Reaction Past Psychological History: Anxiety Smoking Status: Current every day smoker Past Alcohol Use History: Rare Past Drug Use History: Marijuana - Past Family History Father Family Medical History: Diabetes Mellitus, Hyperlipidemia Additional Family Medical History / Comment(s): fatty liver disease, pacemaker Brother(s) Family Medical History: Hyperlipidemia Sister(s) Family Medical History: Hyperlipidemia General Exam - General Exam Comments Initial Comments: Constitutional: NAD, AOX3, Pt has pleasant affect. HEENT: NC/AT, trachea midline, neck supple, no lymphadenopathy. External ears appear normal, without discharge. Mucous membranes moist. Eyes PERRLA, EOM intact. There is no scleral icterus. No pallor noted. Cardiopulmonary: RRR, no murmurs, rubs or gallops, no JVD noted. Lungs CTAB in anterior and posterior loving. No peripheral edema. Abdominal exam: Abdomen soft and non-distended. Neuro: CN II-XII grossly intact. No nuchal rigidity. MSK: Superficial soft tissue partial amputation to the pad of the second digit. Small area of skin removal of the pad of the 3rd digit. Full active range of motion of both digits. Neurovascularly intact. Wounds are unable to be approximated. Vigorously irrigated, hemostasis achieved with gelfoam Limitations: no limitations Course Vital Signs 02/01/20 18:28 Temperature 98.8 F Pulse Rate 99 Respiratory 20 Rate Blood Pressure 151/88 O2 Sat by Pulse 96 Oximetry Medical Decision Making - Medical Decision Making 44-year-old male patient to ED for a laceration. These wounds were vigorously irrigated and hemostasis was achieved with Gelfoam. Plain film was negative. Tetanus is updated. Patient was placed on prophylactic Keflex. Was given 500mg in ED and 5 pills to go home with. Will follow up with primary care provider tomorrow. Return to any worsening symptoms. Case discussed with Dr. Benz. Disposition Clinical Impression: Laceration Disposition: HOME SELF-CARE Condition: Stable Instructions (If sedation given, give patient instructions): Laceration (ED) Additional Instructions: Remove gelfoam after 48 hours. Keep area clean and covered. Take one pill of keflex every 12 hours until gone, total of 5. Follow up with PCP in 1-2 days. Please monitor for signs and symptoms of infection including: redness, warmth, drainage, discharge. Please return to ED if these signs or symptoms occur, new signs or symptoms develop or if condition worsens in anyway. Is patient prescribed a controlled substance at d/c from ED?: No Referrals: Mega Martinez MD [Primary Care Provider] - 1-2 days
== END 2020-02-01 20:45 | disposition home or self-care (01) ==
LOC: EC 18:26
DX: S61.211A Laceration without foreign body of left index finger without damage to nail, initial encounter (principal); S61.213A Laceration without foreign body of left middle finger without damage to nail, initial encounter; F41.9 Anxiety disorder, unspecified; K21.9 Gastro-esophageal reflux disease without esophagitis; E78.5 Hyperlipidemia, unspecified; M19.90 Unspecified osteoarthritis, unspecified site; G47.33 Obstructive sleep apnea (adult) (pediatric); F17.200 Nicotine dependence, unspecified, uncomplicated; Z79.899 Other long term (current) drug therapy; Z88.5 Allergy status to narcotic agent; Z99.89 Dependence on other enabling machines and devices; Z85.51 Personal history of malignant neoplasm of bladder; Z92.21 Personal history of antineoplastic chemotherapy; Z23 Encounter for immunization; W29.8XXA Contact with other powered hand tools and household machinery, initial encounter; Y93.89 Activity, other specified; Y92.009 Unspecified place in unspecified non-institutional (private) residence as the place of occurrence of the external cause
CPT/HCPCS: 73130; 90715; 99283; 90471; J2001

== ENCOUNTER → 2021-03-18 | Outpatient (CLI) | payer OTHER ==
--- NOTE | 2021-03-18 12:50 | MR ---
EXAMINATION TYPE: MR lumbar spine wo/w con DATE OF EXAM: 03/18/2021 COMPARISON: 03/11/2016 HISTORY: Low back pain for 4 weeks that radiates into left leg. TECHNIQUE: T1 and T2 axial and sagittal, postcontrast T1 sagittal and axial images of the lumbar spi ne are submitted. Images CONTRAST: 9 mL of Magnevist FINDINGS: There is no abnormal signal seen within the visualized spinal cord or paraspinal soft tissu es. Nonspecific marrow changes are similar to the prior exam. At L1-2 there is hypertrophic spurring and degenerative disc disease. No foraminal encroachment or ca nal stenosis. No discrete herniation. Findings similar to prior exam. At L2-3 there is hypertrophic spurring in moderate degenerative disc disease similar appearance to pr ior exam. Broad-based disc bulging centrally noted with mild effacement of thecal sac. Bulging extend s laterally to left with mild left-sided foraminal encroachment. Findings similar to prior exam. At L3-4 there is degenerative disc disease and broad-based central disc bulging with mild effacement of thecal sac. Borderline central stenosis with mild bilateral foraminal encroachment. At L4-5 there is broad-based disc bulging with effacement of thecal sac. Facet arthropathy and ligame ntum flavum hypertrophy contribute to mild central stenosis and bilateral foraminal encroachment At L5-S1 there is facet arthropathy but no disc herniation or canal stenosis. No foraminal encroachme nt. IMPRESSION: 1. Multilevel degenerative disc disease and hypertrophic changes. Multilevel foraminal encroachment a s discussed above. There is multilevel disc bulging most marked at L4-L5 with mild central stenosis. 2. Disc bulging at L2-L3 extends laterally left with left-sided foraminal encroachment. Correlate for radiculopathy with this distribution.
== END | disposition home or self-care (01) ==
LOC: RADMRIMAIN 09:01
PROVIDERS: ATTEND Physical Medicine & Rehabilitation
DX: M51.16 Intervertebral disc disorders with radiculopathy, lumbar region (principal); M48.061 Spinal stenosis, lumbar region without neurogenic claudication
CPT/HCPCS: 72158; A9585

== ENCOUNTER → 2023-01-13 | Outpatient (CLI) | payer OTHER ==
[2023-01-13 17:33] LABS: ALT 27 U/L (10-49); AST 20 U/L (14-35); Albumin 4.9 d/dL (3.8-4.9); Albumin/Globulin Ratio 1.88 Ratio (1.60-3.17); Alkaline Phosphatase 94 U/L (41-126); BUN/Creat Ratio 17.22 Ratio (12.00-20.00); Blood Urea Nitrogen 15.5 mg/dL (9.0-27.0); Calcium 9.9 mg/dL (8.7-10.3); Carbon Dioxide 24.8 mmol/L (21.6-31.8); Chloride 105 mmol/L (96-109); Globulin 2.6 d/dL (1.6-3.3); Glucose 86 mg/dL (70-110); Potassium 4.3 mmol/L (3.5-5.5); Sodium 141 mmol/L (135-145); Total Bilirubin 0.5 mg/dL (0.3-1.2); Total Protein 7.5 d/dL (6.2-8.2)
[2023-01-13 17:50] LABS: Basophils # (A) 0.04 X 10*3/uL (0.00-0.10); Basophils % (A) 0.6 %; Eosinophils # (A) 0.58 X 10*3/uL (0.04-0.35); Eosinophils % (A) 9.3 %; HGB 15.7 d/dL (13.0-17.0); Lymphocytes # (A) 1.88 X 10*3/uL (0.90-5.00); Lymphocytes % (A) 30.1 %; MCHC 34.1 d/dL (32.0-37.0); Mean Platelet Volume 9.5 FL (9.5-12.2); Monocytes # (A) 0.64 X 10*3/uL (0.20-1.00); Monocytes % (A) 10.3 %; NRBC Per 100 WBC 0 X 10*3/uL (0.00-0.01); Neutrophils # (A) 3.08 X 10*3/uL (1.80-7.70); Neutrophils % (A) 49.4 %; Platelet Count 222 X 10*3/uL (140-440); RBC 5.23 X 10*6/uL (4.40-5.60); RDW 12.5 % (11.5-14.5); WBC 6.24 X 10*3/uL (4.50-10.00)
== END | disposition home or self-care (01) ==
LOC: LABWHC1 11:45
PROVIDERS: ATTEND Internal Medicine
DX: Z00.00 Encounter for general adult medical examination without abnormal findings (principal); Z11.59 Encounter for screening for other viral diseases; E55.9 Vitamin D deficiency, unspecified; R73.9 Hyperglycemia, unspecified
CPT/HCPCS: 36415; 80053; 82306; 83036; 84443; 85025; 86803

== ENCOUNTER → 2023-01-14 | Outpatient (CLI) | payer OTHER ==
[2023-01-14 13:44] LABS: Chol/HDL Ratio 5.44 Ratio; LDL Cholesterol,Calculated 63.1 mg/dL (0.0-131.0)
== END | disposition home or self-care (01) ==
LOC: LABWHC1 08:52
PROVIDERS: ATTEND Internal Medicine
DX: Z00.00 Encounter for general adult medical examination without abnormal findings (principal); Z11.59 Encounter for screening for other viral diseases; E55.9 Vitamin D deficiency, unspecified; R73.9 Hyperglycemia, unspecified
CPT/HCPCS: 36415; 80061

== ENCOUNTER → 2023-02-01 | Outpatient (CLI) | payer OTHER ==
--- NOTE | 2023-02-01 09:02 | MR ---
EXAMINATION TYPE: MR lumbar spine wo con DATE OF EXAM: 02/01/2023 8:35 AM CLINICAL INDICATION:Male, 47 years old with history of M51.36 DEGENERATION OF DISC LUMBAR REGION; Low er back pain, radiating into front of thighs. COMPARISON: None TECHNIQUE: Multi planar, multi sequence imaging was performed utilizing: T1-weighted, T2-weighted, a nd turbo inversion recovery imaging of the lumbar spine. IV Contrast:(None if empty) FINDINGS: Alignment: The lumbar vertebral bodies have preserved heights and alignment. Cord: The conus medullaris and the distal spinal cord appear unremarkable with regards to their signa l intensity and morphology. Bones/Discs: Minimal disc degeneration changes worse at L2-L5 with disc space narrowing, osteophytes and Modic endplate changes. Reactive bony edema noted at the areas of Modic endplate change. Interver tebral disc signal is maintained. T12-L1: No evidence of significant spinal canal stenosis or neural foraminal stenosis. L1-L2: Disc bulge and facet joint arthropathy result in mild spinal canal and mild bilateral neural f oraminal stenosis. L2-L3: Disc bulge and facet joint arthropathy result in mild spinal canal and moderate to severe left and moderate right neural foraminal stenosis. L3-L4: Disc bulge and facet joint arthropathy result in mild spinal canal and moderate to severe bila teral neural foraminal stenosis. L4-L5: Disc bulge and facet joint arthropathy result in mild spinal canal and severe bilateral neural foraminal stenosis. L5-S1: The disc is rounded posterior morphology without significant spinal canal stenosis. Facet join t arthropathy with mild to moderate bilateral neural foraminal stenosis. No significant spinal canal or neural foraminal stenosis in the remainder of the visualized levels. Other findings: None. IMPRESSION: 1. No definitive evidence of disc herniation or significant spinal canal stenosis. 2. Multilevel disc degeneration with associated osteoarthritic changes. No foraminal stenosis worse at L4-L5 with severe bilateral
== END | disposition home or self-care (01) ==
LOC: RADMRIMAIN 07:35
PROVIDERS: ATTEND Internal Medicine
DX: M51.36 Other intervertebral disc degeneration, lumbar region (principal); M47.816 Spondylosis without myelopathy or radiculopathy, lumbar region
CPT/HCPCS: 72148

== ENCOUNTER → 2024-03-27 | Outpatient (CLI) | payer OTHER ==
--- NOTE | 2024-03-28 08:15 | MR ---
EXAMINATION TYPE: MR summer/lserick wo con DATE OF EXAM: 03/27/2024 10:01 PM COMPARISON: CT 01/26/2017. CLINICAL INDICATION: Male, 48 years old with history of M54.9 DORSALGIA M54.17 RADICULOPATHY LUMBO M5 4.6; PHH, mid and low back pain that radiates down left leg, Hx of Bladder cancer 6 years ago TECHNIQUE: Multi planar, multi sequence imaging was performed utilizing: T1-weighted, T2-weighted, a nd turbo inversion recovery imaging of the thoracic and lumbar spine. IV Contrast: mL (None, if empty) FINDINGS: Alignment: The thoracic and lumbar vertebral bodies have preserved heights and alignment. Cord: The conus medullaris and the distal spinal cord appear unremarkable with regards to their signa l intensity and morphology. Bones/Discs: Multilevel degenerative disc disease is noted. Multilevel disc desiccation is present. R eactive degenerative degeneration bony edema at the posterior adjoining endplates of L2-L3. THORACIC: * T3-T4 Small disc protrusion in the left central region at which mildly impresses on the spinal cor d. Spinal cord signal is maintained. No significant spinal canal or neural foraminal stenosis. * T6-T7 right central and central disc protrusion which mildly impresses upon the spinal cord. No si gnificant spinal canal or neural foraminal stenosis. * T8-T9 central disc protrusion which mildly. No significant spinal canal or neural foraminal stenos is. LUMBAR: T12-L1: No evidence of significant spinal canal stenosis or neural foraminal stenosis. L1-L2: No evidence of significant spinal canal stenosis or neural foraminal stenosis. L2-L3: Disc bulge and facet joint arthropathy result in mild spinal canal and moderate to severe left and moderate right neural foraminal stenosis. L3-L4: Disc bulge and facet joint arthropathy result in mild spinal canal and moderate to severe bila teral neural foraminal stenosis. L4-L5: Disc bulge and facet joint arthropathy result in mild spinal canal and severe right and modera te severe left neural foraminal stenosis. Disc bulge and foraminal region and closely approximates the exiting left nerve L5-S1: The disc is rounded posterior morphology without significant spinal canal stenosis. Facet join t arthropathy with mild neural foraminal stenosis. Other findings: None. IMPRESSION: 1. No definitive evidence of significant spinal canal stenosis in the thoracic or lumbar spine. 2. [id number] disc degeneration with associated osteoarthritic changes. 3. Few scattered protrusions in this thoracic spine which impress upon the spinal cord anteriorly. Sp inal cord signal is maintained. No significant spinal cord stenosis. 4. Degeneration changes in the lumbar spine with severe right L4-L5 and moderate to severe left neura l foraminal stenosis . Extra foraminal disc bulge/osteophyte impresses upon the left L4-L5 nerve. Cor relate clinically. 03/28/2024 8:12 AM,03/27/2024 10:01 PM,Chet Calli Singh,MR deboraine/lspine wo con,[id number], 4 after 3:00 [facility], , 03/28/2024 8:12 AM
== END | disposition home or self-care (01) ==
LOC: RADMRIMAIN 19:30
PROVIDERS: ATTEND Anesthesiology Pain Medicine
DX: M48.061 Spinal stenosis, lumbar region without neurogenic claudication (principal); M51.17 Intervertebral disc disorders with radiculopathy, lumbosacral region; M51.24 Other intervertebral disc displacement, thoracic region; M25.78 Osteophyte, vertebrae
CPT/HCPCS: 72146; 72148